=== PATIENT | female | born 1960 | race Caucasian/White ===

== ENCOUNTER 2017-05-17 15:30 | Inpatient (IN) ==
[2017-05-17] MEDS ORDERED: MEPERIDINE 25 MG/1 ML VIAL IV STA (16:10)
[2017-05-17] MEDS ORDERED: SODIUM CHLORIDE 0.9% 1,000 ML IV STA (16:10)
[2017-05-17] MEDS ORDERED: ONDANSETRON 4 MG/2 ML VIAL IV STA (16:10)
--- NOTE | 2017-05-17 16:16 | Emergency Department Note ---
Arrival - Arrival Chief Complaint: Abdominal / Flank Pain Stated Complaint: STOMACH/KIDNEY STONES/MISC ED Nursing Triage Note: PT C/O LEFT LOWER ABD PAIN AND LEFT FLANK PAIN SINCE LAST NIGHT. PT HAD LITHOTRIPSY BY DR BUSTAMANTE IN [place] WHICH SHE STATES HAS NOT PASSED ANYTHING. +N/V DENIES URINARY S/S. Mode of Arrival: Ambulatory Limitations: No Limitations Source: Patient Time Seen by Provider: 05/17/17 15:52 - History of Present Illness HPI Narrative: The patient complains of sharp mid abdominal pain and left flank pain. She has had problems with the left flank pain since she had lithotripsy in [place] by Dr. Bustamante for a kidney stone. She does not think she ever passed the stone. The abdominal pain just started last night. She describes it as sharp and stabbing, worse with movement. She had one episode of vomiting early this morning. The patient also had a fever of 102 4 days ago but none since. She was seen yesterday in clinic and diagnosed with a sinus infection. She was given IM steroids. She has not filled or taken the antibiotics that were prescribed yet. The patient has a history of multiple abdominal surgeries for endometriosis, hysterectomy and small bowel obstruction. She also has a history of GERD her bowel movements have been normal. Last bowel movement was 2 days ago. Allergies/Adverse Reactions: Allergies Allergy/AdvReac Type Severity Reaction Status Date / Time haloperidol [From Haldol] Allergy Agitated Verified 05/17/17 15:37 iodine Allergy HIVES Verified 05/17/17 15:37 promethazine [From Phenergan] AdvReac Nausea Verified 05/17/17 15:37 Home Medications: Home Medications Medication Instructions Recorded Confirmed Type ALPRAZolam [Alprazolam] 1 tablet PO TID PRN 10/08/15 04/17/17 History Levothyroxine Sodium 1 tablet PO DAILY W/BREAKFAST 10/08/15 04/17/17 History Ondansetron HCl 1 tablet PO BID PRN 10/08/15 04/17/17 History Oxycodone HCl/Acetaminophen 10 mg PO Q4HR PRN 10/08/15 04/17/17 History [Oxycodone-Acetaminophen 10-325] Tramadol HCl [Tramadol Tab] 1 tablet PO QID PRN 10/08/15 04/17/17 History fentaNYL 100 MCG/HR PATCH 1 patch TRANSDERM Q3DAY 10/08/15 04/17/17 History [Duragesic 100 Patch] Cyanocobalamin Inj [Vitamin B12 1,000 mcg SUBCUT Q30D 03/30/17 04/17/17 History Inj] Dexlansoprazole [Dexilant] 60 mg PO DAILY 03/30/17 03/30/17 History Zolpidem [Ambien] 5 mg PO BEDTIME PRN 03/30/17 04/17/17 History Review of System - Review of System 12 point system: reviewed and no additional remarkable complaints except as stated - Review of System Constitutional: Present: fever (4 days ago, none since) Head/Ears/Nose/Throat: Absent: nasal drainage, sore throat Respiratory: Present: cough (Mild, nonproductive) Cardiovascular: Absent: chest pain Gastrointestinal: Present: abdominal pain, nausea, vomiting. Absent: diarrhea, constipation, hematemesis Genitourinary female: Absent: dysuria, hematuria Medical,Surgical,& Family Hx - Medical History Neurology: History of: Multiple Sclerosis Rheumatology: History of;: Rheumatoid Arthritis Genitourinary: History of: Kidney Stones Gastrointestinal: History of: Bowel Obstruction, GERD, GI Problems (IBS) Musculoskeletal: History of: Osteoporosis Reproductive: History of: Endometriosis - Surgical History Thoracic Surgeries: Surgical HX of;: Lithotripsy Reproductive Surgeries: Surgical HX of;: Gynecologic Surgery (For endometriosis) , Hysterectomy - Family History Family History: Reports;: Family Diabetes (father) - Social History Smoking Status: Never smoker Frequency of Alcohol Use: None Type of Drug Use: None Exam Physical Examination: GENERAL: Alert. No acute distress. HEENT: Normocephalic and atraumatic. Tympanic membranes are a little dull bilaterally. No fluid or erythema noted. There is no nasal drainage. No pharyngeal erythema or exudate. NECK: Normal inspection. Supple. No lymphadenopathy or meningismus. LUNGS: No respiratory distress. Clear to auscultation bilaterally, no wheezes, rales or rhonchi. HEART: Regular rate and rhythm. ABDOMEN: Soft, nondistended with normal bowel sounds. Mild mid abdominal and left flank tenderness without guarding or rebound. BACK: Normal inspection. SKIN: Color normal. Warm and dry. EXTREMITIES: Nontender. Normal range of motion. No pedal edema. NEUROLOGICAL/PSYCHIATRIC: Alert and oriented -3 with normal mood and affect. Cranial nerves normal. No motor or sensory deficit. Vital Signs: Vital Signs Temperature 97.8 F 05/17/17 15:34 Pulse Rate 74 05/17/17 15:34 Respiratory Rate 18 05/17/17 15:34 Blood Pressure 104/63 05/17/17 15:34 O2 Sat by Pulse Oximetry 98 05/17/17 15:34 Course Course Narrative: I recommended oral contrast for the CT. The patient refused this and understands that the CT may not be as accurate without the contrast and may miss some serious or life-threatening conditions. - Reevaluation(s) Reevaluation #1: Patient has remained stable in the ER. Her exam is relatively benign but she does appear to be uncomfortable. Given her history of bowel obstruction, her dehydration, her history of fever and her slightly elevated white blood cell count, I think she will likely need admission for observation and possible GI and surgery consults. Her CT scan has multiple abnormalities but is fairly nonspecific. I discussed the patient with the hospitalist service who will see her and admit. Time: 17:51 Results - Labs CBC & BMP: 05/17/17 16:15 05/17/17 16:15 Lab Results: I have reviewed the patients labs Labs: Laboratory Tests 05/17/17 05/17/17 05/17/17 16:15 16:15 16:15 Total Bilirubin 0.60 AST 17 ALT 14 Alkaline Phosphatase 74 Amylase 41 Lipase 123.0 Ur Specific [place] 1.047 H Urine Leukocytes Negative Urine RBC 10 Urine WBC 2 - Impressions CT of the abdomen: 1. Segmental wall thickening involving the jejunum is present with increased number of folds and stacked coin appearance of the existing folds. Differential considerations could include hemorrhage as could be seen with anticoagulant therapy, vasculitis, hemophilia, as well as intestinal edema as could be seen from hyperproteinemia secondary to cirrhosis or nephrotic syndrome. Protein-losing enteropathy could additionally be considered. Infectious process is not excluded. Appearance is not typical of inflammatory bowel disease such as Crohn's. 2. Separate areas of subsegmental bowel wall thickening involving the ileum are present with some loss of fold morphology that could reflect inflammatory bowel disease. 3. Colonic diverticulosis is present without evidence of diverticulitis. 4. Ascites is present. Disposition Clinical Impression: Abdominal pain, Dehydration, Enteritis, Multiple sclerosis, Ascites Case discussed with: patient, patient's family Disposition: Still a Patient Condition: Stable Time of Disposition: 17:33
[2017-05-17 16:28] LABS: Basophils % 0.1 % (0.0-0.8); Eosinophils % 0.1 % (0.00-10.9); Hematocrit 37.3 VOL% (35.7-47.0); Immature Granulocytes % 0.3 %; Immature Granulocytes Absolute 0.05 #; Lymphocytes # 2.9 10*3/uL (1.4-4.0); Lymphocytes % 20.4 % (21.3-54.2); Mean Corpuscular HGB Conc 34.9 GM/DL (32-36); Mean Corpuscular Hemoglobin 33 PG (27-34); Mean Corpuscular Volume 94.7 FL (87-102); Monocytes # 0.6 10*3/uL (0.11-0.8); Monocytes % 4.5 % (1.7-12.7); Neutrophils # 10.7 10*3/uL (1.4-7.4); Neutrophils % 74.6 % (38.7-73.9); Platelet Count 263 T/CUMM (130-400); Red Blood Count 3.94 MC/CUMM (3.8-5.5); Red Cell Distribution Width 12.3 % (9.3-17.3); White Blood Count 14.3 T/CUMM (4-12)
[2017-05-17] MEDS ORDERED: ONDANSETRON 4 MG/2 ML VIAL ONE (16:38)
[2017-05-17] MEDS ORDERED: MEPERIDINE 25 MG/1 ML VIAL ONE (16:38)
--- NOTE | 2017-05-17 17:02 | CT Report ---
CT abdomen pelvis w con Indication: Pain in the midabdomen and left flank. Comparison: CT of abdomen and pelvis 10/08/2015. Technique: CT of the abdomen and pelvis was performed following administration of intravenous contrast. The CT examination was performed using one or more of the following dose reduction techniques: Automatic exposure control, adjustment of the mA and kV according to patient size, or iterative reconstruction techniques. Findings: Lower chest: No acute findings are noted within the lower chest. A moderate hiatal hernia is demonstrated. Liver: Liver demonstrates no evidence of mass. The portal vein is patent. There is a small amount of ascites noted along the anterior margin of the right hepatic lobe with some ascites extending into the right paracolic gutter. Gallbladder: Gallbladder demonstrates no significant abnormality. Spleen: Spleen demonstrates no significant abnormality. A small splenic cleft is suggested along the posterior lateral margin. Pancreas: Pancreas demonstrates no significant abnormality. Adrenal glands: The adrenal glands demonstrate no significant abnormalities. Kidneys: Kidneys demonstrate no significant abnormality. Aorta: The aorta demonstrates no acute findings. Inferior vena cava: Inferior vena cava is normal in appearance. Lymph nodes: No adenopathy is noted within the abdomen or pelvis. Stomach and bowel: With the exception of the previously described hiatal hernia, the stomach is unremarkable in appearance. The duodenum demonstrates no significant abnormality. Jejunum demonstrates segmental wall thickening within the left mid abdomen with the bowel wall measuring up to 9.5 mm in thickness. Prominent mucosal folds remain present these appear to be thickened and regular. The number of folds appears to be increased. Folds present within the involved jejunum have a stacked coin appearance. Additionally, there is moderate enhancement of the mucosal surfaces which is considered somewhat nonspecific. Separate areas of bowel wall thickening with less well-defined mucosal folds appear to involve the ileum. Multiple air-fluid levels are noted throughout small bowel. No transition point is present. The mesentery demonstrates small collections of interleaved fluid. Mesenteric stranding additionally is present. The terminal ileum demonstrates no specific abnormality. Cecum is unremarkable. The large bowel demonstrates no evidence of acute pathology. Few scattered diverticula are present in the sigmoid colon. Intrapelvic contents: Small amount of fluid is present within the pelvis. Osseous structures: The imaged osseous structures of the lumbar spine, pelvis, and proximal femurs demonstrate no acute findings. Soft tissues and musculature: Soft tissues and musculature of the body wall demonstrate no acute findings. Impression: 1. Segmental wall thickening involving the jejunum is present with increased number of folds and stacked coin appearance of the existing folds. Differential considerations could include hemorrhage as could be seen with anticoagulant therapy, vasculitis, hemophilia, as well as intestinal edema as could be seen from hyperproteinemia secondary to cirrhosis or nephrotic syndrome. Protein-losing enteropathy could additionally be considered. Infectious process is not excluded. Appearance is not typical of inflammatory bowel disease such as Crohn's. 2. Separate areas of subsegmental bowel wall thickening involving the ileum are present with some loss of fold morphology that could reflect inflammatory bowel disease. 3. Colonic diverticulosis is present without evidence of diverticulitis. 4. Ascites is present. 5. Other findings as detailed. 05/17/2017 4:46 PM PROCEDURE INTERPRETED AT [facility] DEPARTMENT OF RADIOLOGY Final Report Signed by: Dr. Ean Templeton
[2017-05-17 17:04] LABS: Apearance,Urine CLEAR (Clear); Bilirubin,Urine Negative (Negative); Blood, Urine Moderate mg/dL (Negative); Glucose,Urine (UA) Negative (Negative); Ketones,Urine Negative (Negative); Mucus,Urine Few /LPF (Occasional); Nitrite,Urine Negative (Negative); Protein,Urine Negative; RBC,Urine 10 /HPF (0-4); Squamous Epithelial Cell,Urine Occasional /HPF (0-10); Urine Color Yellow (Yellow); Urine Specific Gravity 1.047 (1.001-1.035); Urine Urobilinogen < 2.0 EU/DL (0.2-1.0); WBC,Urine 2 /HPF (0-6)
[2017-05-17 17:06] LABS: Albumin 3.9 G/DL (3.4-5.0); Bilirubin,Total 0.6 MG/DL (0.2-1.0); Calcium 9.2 MG/DL (8.5-10.1); Osmolality,Calculated 276.7 MOS/KG (273-304); Potassium 4.6 MMOL/L (3.5-5.1); Total Protein 7.5 G/DL (6.4-8.3)
[2017-05-17] MEDS ORDERED: MORPHINE 2 MG/1 ML SYRINGE IV PRN (18:53)
[2017-05-17] MEDS ORDERED: ZALEPLON 5 MG CAPSULE PO PRN (18:55)
[2017-05-17] MEDS ORDERED: traMADol 50 MG TABLET PO PRN (18:55)
--- NOTE | 2017-05-17 18:58 | Hospitalist History & Physical ---
Assessment and Plan - Time spent with patient Time spent with patient: Greater than 30 minutes (1) Abdominal pain Status: Acute Assessment and plan: Patient presents with abdominal pain associated with nausea and vomiting. She is now pain-free. CT of the abdomen has been reviewed. Based on these findings will observe her overnight with IV hydration, IV analgesics and antiemetics as needed. 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 Candelario Mendez in the a.m. if required. Current Visit: Yes (2) Scleroderma Status: Chronic Assessment and plan: Stable. Continue current medical regimen. Current Visit: Yes (3) Multiple sclerosis Status: Chronic Assessment and plan: Stable. Current Visit: Yes (4) Hypothyroid Status: Chronic Assessment and plan: Continue current replacement therapy. Current Visit: Yes (5) History of kidney stones Status: Chronic Assessment and plan: Patient had recent kidney stone status post lithotripsy and is been followed by Dr. Shiva Bustamante in the past. At this time do not think pain is related, therefore will treat symptomatically overnight and reevaluate in the a.m. Current Visit: Yes History of Present Illness Chief complaint: Abdominal pain History of present illness: Ms. Stewart is a 56 year old white female who states that she had a kidney stone and underwent lithotripsy approximately 3 weeks ago. She has had continued pain and is followed up with Dr. Shiva Bustamante. Over the weekend she has been noting some intermittent subjective fevers which been waxing and waning and her pain actually got better on Monday. She saw her primary care provider Dr. Chinedu Hyatt yesterday and received I him Decadron shot. She was also sent given some prescriptions which she did not feel. Last night however she had increasing abdominal discomfort with associated nausea and vomiting which lasted throughout the night therefore she came to the emergency room for further evaluation. She denies any melena, hematochezia, hematemesis, dysuria, hematuria, urinary frequency urgency or incontinence. Her last bowel movement was yesterday was within normal limits. Home Medications Medication Instructions Recorded Confirmed Type ALPRAZolam [Alprazolam] 1 tablet PO TID PRN 10/08/15 04/17/17 History Levothyroxine Sodium 1 tablet PO DAILY W/BREAKFAST 10/08/15 04/17/17 History Ondansetron HCl 1 tablet PO BID PRN 10/08/15 04/17/17 History Oxycodone HCl/Acetaminophen 10 mg PO Q4HR PRN 10/08/15 04/17/17 History [Oxycodone-Acetaminophen 10-325] Tramadol HCl [Tramadol Tab] 1 tablet PO QID PRN 10/08/15 04/17/17 History fentaNYL 100 MCG/HR PATCH 1 patch TRANSDERM Q3DAY 10/08/15 04/17/17 History [Duragesic 100 Patch] Cyanocobalamin Inj [Vitamin B12 1,000 mcg SUBCUT Q30D 03/30/17 04/17/17 History Inj] Dexlansoprazole [Dexilant] 60 mg PO DAILY 03/30/17 03/30/17 History Zolpidem [Ambien] 5 mg PO BEDTIME PRN 03/30/17 04/17/17 History Allergies Allergy/AdvReac Type Severity Reaction Status Date / Time haloperidol [From Haldol] Allergy Agitated Verified 05/17/17 15:37 iodine Allergy HIVES Verified 05/17/17 15:37 promethazine [From Phenergan] AdvReac Nausea Verified 05/17/17 15:37 Medical,Surgical,& Family Hx - Medical History Neurology: History of: Multiple Sclerosis Rheumatology: History of;: Fibromyalgia, Rheumatoid Arthritis, Rheumatological Problems (Scleroderma) Genitourinary: History of: Kidney Stones Gastrointestinal: History of: Bowel Obstruction, GERD, GI Problems (IBS) Musculoskeletal: History of: Osteoporosis Reproductive: History of: Endometriosis - Surgical History Thoracic Surgeries: Surgical HX of;: Lithotripsy Abdominal Surgeries: Surgical HX of: Abdominal Surgery (Secondary to small bowel obstruction) Reproductive Surgeries: Surgical HX of;: Gynecologic Surgery (For endometriosis) , Hysterectomy Patient denies;: Genitourinary Surgery - Family History Family History: Reports;: Family Diabetes (father) - Social History Smoking Status: Never smoker Frequency of Alcohol Use: None Type of Drug Use: None 12 point system: reviewed and no additional remarkable complaints except as stated Exam - Constitutional Vitals: Period Temp Pulse Resp BP Sys/Ochoa Pulse Ox Last 24 Hr 97.8 F 74 18 104/63 98 General appearance: no acute distress - Head Head exam: Present: normocephalic, atraumatic - Eye Eye exam: Present: EOMI. Absent: scleral icterus Pupils: Present: FORREST - ENT ENT exam: Present: normal oropharynx - Neck Neck exam: Absent: lymphadenopathy, meningismus, tenderness, thyromegaly - Respiratory Respiratory exam: Present: clear to auscultation bilaterally. Absent: rales, rhonchi, wheezes - Cardiovascular Cardiovascular exam: Present: regular rate and rhythm. Absent: gallop, JVD, systolic murmur, tachycardia - GI/Abdominal GI/Abdominal exam: Present: normal bowel sounds, soft. Absent: mass, organomegaly, tenderness, rebound - Extremities Exam Extremities exam: Absent: calf tenderness, edema - Back Exam Back exam: Present: normal inspection - Neurological Exam Neurological exam: Present: alert, oriented X3, CN II-XII intact, reflexes normal. Absent: motor sensory deficit - Psychiatric Psychiatric exam: Present: normal affect, normal mood. Absent: agitated, anxious - Skin Skin exam: Present: warm, dry. Absent: erythema, petechiae, rash Results - Labs CBC & BMP: 05/17/17 16:15 05/17/17 16:15 Lab Results: I have reviewed the past 24 hour labs - Diagnostic Findings Procedure: CT Abdomen and Pelvis: report reviewed by me
[2017-05-17] MEDS: MEPERIDINE 25 MG/1 ML VIAL IV PRN (22:10)
[2017-05-17] MEDS: ONDANSETRON 4 MG/2 ML VIAL IV PRN (22:12)
[2017-05-17] MEDS: SODIUM CHLORIDE 0.9% 1,000 ML IV SCH (22:13)
[2017-05-18] MEDS: MEPERIDINE 25 MG/1 ML VIAL IV PRN ×4 (03:50→21:57)
[2017-05-18] MEDS: ONDANSETRON 4 MG/2 ML VIAL IV PRN (03:51)
[2017-05-18] MEDS: SODIUM CHLORIDE 0.9% 1,000 ML IV SCH ×3 (05:35→16:09)
[2017-05-18 07:05] LABS: Basophils % 0.4 % (0.0-0.8); Eosinophils # 0.1 10*3/uL (0.0-0.87); Eosinophils % 0.7 % (0.00-10.9); Hematocrit 30.2 VOL% (35.7-47.0); Hemoglobin 10.1 GM/DL (12.0-16.0); Immature Granulocytes % 0.5 %; Immature Granulocytes Absolute 0.04 #; Lymphocytes # 2.5 10*3/uL (1.4-4.0); Lymphocytes % 29.9 % (21.3-54.2); Mean Corpuscular HGB Conc 33.4 GM/DL (32-36); Mean Corpuscular Hemoglobin 32 PG (27-34); Mean Corpuscular Volume 96.2 FL (87-102); Mean Platelet Volume 9.5 FL (9.6-12.0); Monocytes # 0.4 10*3/uL (0.11-0.8); Monocytes % 4.9 % (1.7-12.7); Neutrophils # 5.4 10*3/uL (1.4-7.4); Neutrophils % 63.6 % (38.7-73.9); Platelet Count 222 T/CUMM (130-400); Red Blood Count 3.14 MC/CUMM (3.8-5.5); Red Cell Distribution Width 12.7 % (9.3-17.3); White Blood Count 8.5 T/CUMM (4-12)
[2017-05-18 07:28] LABS: Calcium 7.6 MG/DL (8.5-10.1)
[2017-05-18 07:29] LABS: Osmolality,Calculated 279.3 MOS/KG (273-304); Potassium 3.8 MMOL/L (3.5-5.1)
[2017-05-18] MEDS: fentaNYL 100 MCG/HR PATCH TRANSDERM SCH (08:47)
[2017-05-18] MEDS: PANTOPRAZOLE 40 MG TABLET PO SCH (08:48)
[2017-05-18] MEDS: LEVOTHYROXINE 100 MCG TABLET PO SCH (08:48)
[2017-05-18] MEDS ORDERED: CYANOCOBALAMIN 1000 MCG/1 ML VIAL SUBCUT SCH (09:00)
--- NOTE | 2017-05-18 09:19 | Hospitalist Progress Note ---
Assessment and Plan (1) Abdominal pain Status: Acute Assessment and plan: She states vomiting has stopped and pain has improved. CT report noted. Plan awaiting GI's input. continue IV hydration, IV analgesics and antiemetics as needed Will start antibiotics if patient spikes a temp BC Current Visit: Yes (2) Scleroderma Status: Chronic Assessment and plan: Stable. Continue current medical regimen. Current Visit: Yes (3) Multiple sclerosis Status: Chronic Assessment and plan: Stable. Current Visit: Yes (4) Hypothyroid Status: Chronic Assessment and plan: will get a TSH level, continue current replacement therapy. Current Visit: Yes (5) History of kidney stones Status: Chronic Assessment and plan: Patient had recent kidney stone status post lithotripsy and is been followed by Dr. Shiva Bustamante in the past. At this time do not think pain is related, therefore will treat symptomatically Current Visit: Yes Hospitalist: Subjective Interval history: 56yr old with multiple medical issues who was admitted for an abdominal pain. This am, she states vomiting has stopped and pain has improved.We are still waiting for a GI evaluation. Exam - Constitutional Vitals: Period Temp Pulse Resp BP Sys/Ochoa Pulse Ox Last 24 Hr 97.3 F-98.0 F 65-74 18-20 90-110/51-68 94-98 General appearance: no acute distress - Head Head exam: Present: normal inspection - ENT ENT exam: Present: normal exam - Respiratory Respiratory exam: Present: clear to auscultation bilaterally - Cardiovascular Cardiovascular exam: Present: regular rate and rhythm - GI/Abdominal GI/Abdominal exam: Present: normal bowel sounds - Extremities Exam Extremities exam: Present: normal inspection - Neurological Exam Neurological exam: Present: alert, oriented X3 Results - Labs CBC & BMP: 05/18/17 05:30 05/18/17 05:30 Lab Results: I have reviewed the past 24 hour labs
[2017-05-18 09:52] LABS: Free T4 (Free Thyroxine) 0.68 NG/DL (0.76-1.46); Thyroid Stimulating Hormone 94.9 uIU/ml (0.358-3.74)
--- NOTE | 2017-05-18 11:19 | Gastrointestinal Consult Note ---
Assessment and Plan (1) Abdominal pain Status: Acute Assessment and plan: 05/18-several day history of lower abdominal and umbilical pain with associated nausea and vomiting as well as fever and chills. History of small bowel obstruction in the past. Leukocytosis noted on admission. CT findings noted as below. Currently no IV antibiotics. Obtain records from endoscopic center for prior endoscopy. Plan an addendum followed by Dr. Mendez. Current Visit: Yes History of Present Illness Chief complaint: Abdominal pain History of present illness: Ms. Stewart is a 56 year old female who was admitted to the hospital on yesterday with onset of abdominal pain, nausea vomiting. Patient states that approximately 3 weeks ago she was found to have kidney stones and underwent lithotripsy. She states that she has had some lower back pain associated with this however on Monday she states the pain began in her abdomen around her umbilical area. She states the pain was severe in nature and described to be sharp and stabbing. The pain began fairly sudden and was associated with episodes of intractable nausea and vomiting. She also states that she has had some associated fever and chills with a temperature up to 100.2. Patient states that she then came to the hospital for further evaluation due to worsening of her symptoms. She denies any changes in her bowel habits or hematochezia associated with this. She denies any coffee-ground or hematemesis with the vomiting episodes. Patient has a prior history of scleroderma, multiple sclerosis, and hypothyroidism. She states that she has had gastrointestinal issues for several years with her most recent being in 2014 in which she had a small bowel obstruction which fortunately resolved without surgical intervention. Patient also has a history of multiple abdominal surgeries for endometriosis as well as hysterectomy. She also has a history of irritable bowel syndrome. She has had multiple upper scopes done however the last EGD was in 2012 which was normal findings. Her last colonoscopy was noted to be done in 2002 far recurrent diarrhea and abdominal pain with normal findings to the level of the hepatic flexure however poor bowel prep was noted at that time. On admission patient was found to have leukocytosis with WBCs of 14,000. She has been afebrile since admission. She was also noted to have a CT of abdomen with contrast which shows segmental wall thickening of the jejunum with increased folds and stacked coin appearance, separate areas of subsegmental bowel wall thickening of the ileum, diverticulosis and ascites. Home Medications Medication Instructions Recorded Confirmed Type ALPRAZolam [Alprazolam] 2 mg PO TID PRN 10/08/15 05/18/17 History Oxycodone HCl/Acetaminophen 10 mg PO Q4H PRN 10/08/15 05/18/17 History [Oxycodone-Acetaminophen 10-325] Tramadol HCl [Tramadol Tab] 50 mg PO QID PRN 10/08/15 05/18/17 History fentaNYL 100 MCG/HR PATCH 1 patch TRANSDERM Q3D 10/08/15 05/18/17 History [Duragesic 100 Patch] Cyanocobalamin Inj [Vitamin B12 1,000 mcg SUBCUT Q30D 03/30/17 05/18/17 History Inj] Dexlansoprazole [Dexilant] 60 mg PO DAILY 03/30/17 05/18/17 History Zolpidem [Ambien] 5 mg PO BEDTIME PRN 03/30/17 05/18/17 History Levothyroxine Tab [Synthroid Tab] 125 mcg PO DAILY@0700 05/17/17 05/18/17 History Ondansetron [Ondansetron Odt] 4 mg PO BID PRN 05/17/17 05/18/17 History Allergies Allergy/AdvReac Type Severity Reaction Status Date / Time haloperidol [From Haldol] Allergy Agitated Verified 05/17/17 15:37 iodine Allergy HIVES Verified 05/17/17 15:37 promethazine [From Phenergan] AdvReac Nausea Verified 05/17/17 15:37 Medical,Surgical,& Family Hx - Medical History Neurology: History of: Multiple Sclerosis No history of: Brain Aneurysm, Cerebral Hemorrhage, Cerebrovascular Accident , Cerebral Palsy, Dementia, Migraine, Parkinson's Disease, Peripheral Neuropathy , Seizures, TIA, Vertigo, Neurologocal Cancer HEENT: History of: Eye Problem (partial loss of vision Left eye) No history of: Ear Problem, Dental Problems, Glaucoma, Oral Cancer, HEENT Problems Rheumatology: History of;: Fibromyalgia, Rheumatoid Arthritis, Rheumatological Problems (Scleroderma) No history of;: Gout, Myasthenia Gravis Renal: No history of: Renal (Kidney) Cancer, Dialysis, Renal Failure, Renal Problems Genitourinary: History of: Kidney Stones No history of: Bladder Problem, Recurring Urinary Tract Infections, Genitourinary Cancer, Problems Gastrointestinal: History of: Bowel Obstruction, GERD, GI Problems (IBS) No history of: Clostridium Difficile, Crohn's Disease, Diverticulitis/ Diverticulosis, Esophageal Varices, Gastrointestinal Bleed, Hemorrhoids, Hematochezia, Hepatitis, Liver Problems, Pancreatitis, Polyps, Ulcerative Colitis, Gastrointestinal Cancer Musculoskeletal: History of: Herniated Disk, Osteoporosis, Musculoskeletal Problems No history of: Amputation, Back/Neck Problems, Degenerative Disk Disease, Musculoskeletal Cancer Reproductive: History of: Endometriosis No history of: Abnormal Pap Smear, Breast Cancer, Ectopic , Ovarian Cysts, Complication, Sexually Transmitted Disorders, Reproductive Cancer, Reproductive Problems - Surgical History Cardiac Surgeries: Patient Denies: Femoral-Popliteal Bypass Graft, Cardiac Catheterization, Cardiac Surgery, Carotid Endarterectomy, Internal Defibrillator, Vascular Access Devices Thoracic Surgeries: Surgical HX of;: Lithotripsy Patient denies;: Nephrectomy, Organ Transplant, Lobectomy Neurologic Surgeries: Patient denies: Brain Aneurysm, Cerebral Hemorrhage, Neurologic Surgery HEENT Surgeries: Surgical HX of: Tonsilectomy & Adenoidectomy Patient denies: Carotid Endarterectomy Abdominal Surgeries: Surgical HX of: Abdominal Surgery (Secondary to small bowel obstruction), Appendectomy, Colonoscopy, EGD Patient denies: Cholecystectomy, Gastric Bypass Surgery, Hernia Repair, Splenectomy Reproductive Surgeries: Surgical HX of;: Gynecologic Surgery (For endometriosis) , Hysterectomy Patient denies;: Breast Surgery, Section, Cystoscopy, Dilation and Curettage, Genitourinary Surgery, Tubal Ligation Orthopedic Surgeries: Surgical HX of;: Orthopedic Surgery (Right knee partial) Patient denies;: Implanted Devices, Total Knee Replacement - Family History Family History: Reports;: Family Diabetes (father) - Social History Smoking Status: Never smoker Frequency of Alcohol Use: None Type of Drug Use: None 12 point system: reviewed and no additional remarkable complaints except as stated - Constitutional Constitutional: Present: as per HPI, chills, fatigue, fever(s) - EENT Eyes: Present: as per HPI Ears: Present: as per HPI Nose, mouth and throat: Present: as per HPI - Cardiovascular Cardiovascular: Present: as per HPI - Respiratory Respiratory: Present: as per HPI - Gastrointestinal Gastrointestinal: Present: as per HPI, abdominal pain, nausea, vomiting - Genitourinary Genitourinary: Present: as per HPI - Musculoskeletal Musculoskeletal: Present: as per HPI - Neurological Neurological: Present: as per HPI - Psychiatric Psychiatric: Present: as per HPI - Endocrine Endocrine: Present: as per HPI - Hematologic/Lymphatic Hematologic/Lymphatic: Present: as per HPI Exam - Constitutional Vitals: Period Temp Pulse Resp BP Sys/Ochoa Pulse Ox Last 24 Hr 97.3 F-98.0 F 65-74 18-20 90-110/51-68 94-98 General appearance: normal weight, no acute distress - Head Head exam: Present: normal inspection, normocephalic - Eye Eye exam: Present: other (Lids and conjunctivae are unremarkable). Absent: scleral icterus - ENT ENT exam: Present: normal exam, normal oropharynx - Neck Neck exam: Present: normal inspection - Respiratory Respiratory exam: Present: clear to auscultation bilaterally. Absent: rales, rhonchi, wheezes - Cardiovascular Cardiovascular exam: Present: regular rate and rhythm. Absent: diastolic murmur , JVD, systolic murmur - GI/Abdominal GI/Abdominal exam: Present: normal bowel sounds, soft. Absent: ascites, distended, mass, organomegaly, tenderness - Extremities Exam Extremities exam: Present: normal inspection, full ROM - Back Exam Back exam: Present: normal inspection - Neurological Exam Neurological exam: Present: alert, oriented X3 - Psychiatric Psychiatric exam: Present: normal affect, normal mood - Skin Skin exam: Present: normal color, warm, dry Results - Labs CBC & BMP: 05/18/17 05:30 05/18/17 05:30 Lab Results: I have reviewed the past 24 hour labs - Diagnostic Findings Procedure: CT Abdomen and Pelvis: report reviewed by me
[2017-05-18] MEDS ORDERED: cefTRIAXone 1,000 MG VIAL IM SCH (18:00)
--- NOTE | 2017-05-18 18:04 | Pain Management Consult Note ---
Assessment and Plan (1) Abdominal pain Status: Acute Assessment and plan: i will increase the frequency of demerol as requested by patient and review again in morning Current Visit: Yes History of Present Illness Chief complaint: abdominal pain History of present illness: Ms. Stewart is a 56 year old female patient well known to me due to history of chronic low back pain and recurrent urinary tract infections. patient is now admitted with suspected diverticulitis and requesting increase in demerol dose Home Medications Medication Instructions Recorded Confirmed Type ALPRAZolam [Alprazolam] 2 mg PO TID PRN 10/08/15 05/18/17 History Oxycodone HCl/Acetaminophen 10 mg PO Q4H PRN 10/08/15 05/18/17 History [Oxycodone-Acetaminophen 10-325] Tramadol HCl [Tramadol Tab] 50 mg PO QID PRN 10/08/15 05/18/17 History fentaNYL 100 MCG/HR PATCH 1 patch TRANSDERM Q3D 10/08/15 05/18/17 History [Duragesic 100 Patch] Cyanocobalamin Inj [Vitamin B12 1,000 mcg SUBCUT Q30D 03/30/17 05/18/17 History Inj] Dexlansoprazole [Dexilant] 60 mg PO DAILY 03/30/17 05/18/17 History Zolpidem [Ambien] 5 mg PO BEDTIME PRN 03/30/17 05/18/17 History Levothyroxine Tab [Synthroid Tab] 125 mcg PO DAILY@0700 05/17/17 05/18/17 History Ondansetron [Ondansetron Odt] 4 mg PO BID PRN 05/17/17 05/18/17 History Allergies Allergy/AdvReac Type Severity Reaction Status Date / Time haloperidol [From Haldol] Allergy Agitated Verified 05/17/17 15:37 iodine Allergy HIVES Verified 05/17/17 15:37 promethazine [From Phenergan] AdvReac Nausea Verified 05/17/17 15:37 Medical,Surgical,& Family Hx - Medical History Neurology: History of: Multiple Sclerosis No history of: Brain Aneurysm, Cerebral Hemorrhage, Cerebrovascular Accident , Cerebral Palsy, Dementia, Migraine, Parkinson's Disease, Peripheral Neuropathy , Seizures, TIA, Vertigo, Neurologocal Cancer HEENT: History of: Eye Problem (partial loss of vision Left eye) No history of: Ear Problem, Dental Problems, Glaucoma, Oral Cancer, HEENT Problems Rheumatology: History of;: Fibromyalgia, Rheumatoid Arthritis, Rheumatological Problems (Scleroderma) No history of;: Gout, Myasthenia Gravis Renal: No history of: Renal (Kidney) Cancer, Dialysis, Renal Failure, Renal Problems Genitourinary: History of: Kidney Stones No history of: Bladder Problem, Recurring Urinary Tract Infections, Genitourinary Cancer, Problems Gastrointestinal: History of: Bowel Obstruction, GERD, GI Problems (IBS) No history of: Clostridium Difficile, Crohn's Disease, Diverticulitis/ Diverticulosis, Esophageal Varices, Gastrointestinal Bleed, Hemorrhoids, Hematochezia, Hepatitis, Liver Problems, Pancreatitis, Polyps, Ulcerative Colitis, Gastrointestinal Cancer Musculoskeletal: History of: Herniated Disk, Osteoporosis, Musculoskeletal Problems No history of: Amputation, Back/Neck Problems, Degenerative Disk Disease, Musculoskeletal Cancer Reproductive: History of: Endometriosis No history of: Abnormal Pap Smear, Breast Cancer, Ectopic , Ovarian Cysts, Complication, Sexually Transmitted Disorders, Reproductive Cancer, Reproductive Problems - Surgical History Cardiac Surgeries: Patient Denies: Femoral-Popliteal Bypass Graft, Cardiac Catheterization, Cardiac Surgery, Carotid Endarterectomy, Internal Defibrillator, Vascular Access Devices Thoracic Surgeries: Surgical HX of;: Lithotripsy Patient denies;: Nephrectomy, Organ Transplant, Lobectomy Neurologic Surgeries: Patient denies: Brain Aneurysm, Cerebral Hemorrhage, Neurologic Surgery HEENT Surgeries: Surgical HX of: Tonsilectomy & Adenoidectomy Patient denies: Carotid Endarterectomy Abdominal Surgeries: Surgical HX of: Abdominal Surgery (Secondary to small bowel obstruction), Appendectomy, Colonoscopy, EGD Patient denies: Cholecystectomy, Gastric Bypass Surgery, Hernia Repair, Splenectomy Reproductive Surgeries: Surgical HX of;: Gynecologic Surgery (For endometriosis) , Hysterectomy Patient denies;: Breast Surgery, Section, Cystoscopy, Dilation and Curettage, Genitourinary Surgery, Tubal Ligation Orthopedic Surgeries: Surgical HX of;: Orthopedic Surgery (Right knee partial) Patient denies;: Implanted Devices, Total Knee Replacement - Family History Family History: Reports;: Family Diabetes (father) - Social History Smoking Status: Never smoker Frequency of Alcohol Use: None Type of Drug Use: None 12 point system: reviewed and no additional remarkable complaints except as stated Exam - Constitutional Vitals: Period Temp Pulse Resp BP Sys/Ochoa Pulse Ox Last 24 Hr 97.3 F-98.0 F 60-71 18-20 90-111/51-68 94-98 General appearance: mild distress - Head Head exam: Present: normal inspection - Eye Eye exam: Present: EOMI Pupils: Present: FORREST - ENT ENT exam: Present: normal exam Ear exam: Present: intact Mouth exam: Present: normal external inspection - Neck Neck exam: Present: normal inspection - Respiratory Respiratory exam: Present: clear to auscultation bilaterally - Cardiovascular Cardiovascular exam: Present: RRR - GI/Abdominal GI/Abdominal exam: Present: tenderness - Extremities Exam Extremities exam: Present: normal inspection - Back Exam Back exam: Present: vertebral tenderness - Neurological Exam Neurological exam: Present: alert, oriented X3 - Skin Skin exam: Present: normal color Results - Labs CBC & BMP: 05/18/17 05:30 05/18/17 05:30 Lab Results: I have reviewed the past 24 hour labs
[2017-05-18] MEDS: cefTRIAXone 1,000 MG in SODIUM CHLORIDE 0.9% 100 ML IV SCH (18:36)
[2017-05-18] MEDS: metroNIDAZOLE INJ 500 MG in PREMIX 1 EACH IV SCH (19:38)
[2017-05-19] MEDS: SODIUM CHLORIDE 0.9% 1,000 ML IV SCH ×3 (00:37→17:45)
[2017-05-19] MEDS: metroNIDAZOLE INJ 500 MG in PREMIX 1 EACH IV SCH ×3 (02:38→17:43)
[2017-05-19] MEDS: MEPERIDINE 25 MG/1 ML VIAL IV PRN ×5 (02:40→23:58)
--- NOTE | 2017-05-19 06:28 | Pain Management Progress Note ---
Assessment and Plan (1) Abdominal pain Status: Acute Assessment and plan: i will increase the frequency of demerol as requested by patient and review again in morning 05/19 we can continue current home pain medications and Demerol can be given as needed for breakthrough pain Current Visit: Yes Pain - Subjective Interval history: Patient continues to complain of back pain on the left flank and lower abdominal pain left side more than right. Changing the Demerol to every 4 hours has helped somewhat. I inquired with the patient about her bowel movements and she reports she is not having had has had a bowel movement since Monday. I have informed her that these opioids are contributing to the constipation and may need to be adjusted by GI recommendations Exam - Constitutional Vitals: Period Temp Pulse Resp BP Sys/Ochoa Pulse Ox Last 24 Hr 97.0 F-98.9 F 55-65 17-20 84-111/45-59 93-98 General appearance: no acute distress - Head Head exam: Present: normal inspection - Eye Eye exam: Present: EOMI Pupils: Present: FORREST - ENT ENT exam: Present: normal exam Ear exam: Present: intact Mouth exam: Present: normal external inspection - Neck Neck exam: Present: normal inspection - Respiratory Respiratory exam: Present: clear to auscultation bilaterally - Cardiovascular Cardiovascular exam: Present: RRR - GI/Abdominal GI/Abdominal exam: Present: tenderness - Extremities Exam Extremities exam: Present: normal inspection - Back Exam Back exam: Present: CVA tenderness (L), vertebral tenderness - Neurological Exam Neurological exam: Present: abnormal gait - Skin Skin exam: Present: normal color Results - Labs CBC & BMP: 05/18/17 05:30 05/18/17 05:30 Lab Results: I have reviewed the past 24 hour labs
[2017-05-19] MEDS: PANTOPRAZOLE 40 MG TABLET PO SCH (09:39)
[2017-05-19] MEDS: LEVOTHYROXINE 100 MCG TABLET PO SCH (09:39)
--- NOTE | 2017-05-19 09:57 | Gastrointestinal Progress Note ---
Assessment and Plan (1) Abdominal pain Status: Acute Assessment and plan: 05/19-abdominal pain continues. No nausea or vomiting. Afebrile. No leukocytosis. Diagnostic paracentesis today. Await results of this. Plan an addendum to follow Dr. Mendez 05/18-several day history of lower abdominal and umbilical pain with associated nausea and vomiting as well as fever and chills. History of small bowel obstruction in the past. Leukocytosis noted on admission. CT findings noted as below. Currently no IV antibiotics. Obtain records from endoscopic center for prior endoscopy. Plan an addendum followed by Dr. Mendez. Current Visit: Yes Gastroenterology - PN: Subj Interval history: CC: Abdominal pain Patient is seen awake and alert lying in bed. States that she is feeling about the same at this time. Patient is concerned because she has her original pain however feels like she is having what she feels like is pain related to her appendix. She is noted to be scheduled today for a diagnostic paracentesis due to the findings of ascites on her CT scan. She is afebrile without leukocytosis. Abdomen is soft, tender to palpation. No reports of overt bleeding. Continue IV antibiotics and await results of paracentesis. ROS: Denies shortness of breath or chest pain Exam (Progress Note) - Constitutional Vitals: Period Temp Pulse Resp BP Sys/Ochoa Pulse Ox Last 24 Hr 97.0 F-98.9 F 55-64 17-20 84-111/45-59 93-98 - Other Additional findings: General appearance: normal weight, no acute distress - Head Head exam: Present: normal inspection, normocephalic - Eye Eye exam: Present: other (Lids and conjunctivae are unremarkable). Absent: scleral icterus - ENT ENT exam: Present: normal exam, normal oropharynx - Neck Neck exam: Present: normal inspection - Respiratory Respiratory exam: Present: clear to auscultation bilaterally. Absent: rales, rhonchi, wheezes - Cardiovascular Cardiovascular exam: Present: regular rate and rhythm. Absent: diastolic murmur , JVD, systolic murmur - GI/Abdominal GI/Abdominal exam: Present: normal bowel sounds, soft. Absent: ascites, distended, mass, organomegaly, tenderness - Extremities Exam Extremities exam: Present: normal inspection, full ROM - Back Exam Back exam: Present: normal inspection - Neurological Exam Neurological exam: Present: alert, oriented X3 - Psychiatric Psychiatric exam: Present: normal affect, normal mood - Skin Skin exam: Present: normal color, warm, dry Results - Labs CBC & BMP: 05/18/17 05:30 05/18/17 05:30 Lab Results: I have reviewed the past 24 hour labs
--- NOTE | 2017-05-19 10:15 | Hospitalist Progress Note ---
Assessment and Plan - Time spent with patient Time spent with patient: Greater than 30 minutes (Pt is new to me today and chart reviewed by me today.) (1) Abdominal pain Status: Acute Assessment and plan: Due to enteritis, also suspect possible SBP. On IV rocephin and flagyl. IR consulted for diagnostic paracentesis today. GI f/u. Current Visit: Yes (2) Enteritis Status: Acute Assessment and plan: Continue IV rocephin and flagyl Current Visit: Yes (3) Ascites Status: Acute Assessment and plan: Suspect SBP, will do paracentesis today. Current Visit: Yes (4) Multiple sclerosis Status: Chronic Current Visit: Yes (5) Chronic low back pain Status: Acute Assessment and plan: Continue pain management. Current Visit: No (6) Anemia Status: Acute Assessment and plan: Monitor H/H, transfuse as needed. Current Visit: No (7) Scleroderma Status: Chronic Current Visit: Yes (8) Hypothyroid Status: Chronic Assessment and plan: Continue synthroid Current Visit: Yes (9) History of kidney stones Status: Chronic Current Visit: Yes Hospitalist: Subjective Interval history: Still has persistent abd pain at lower abd area. No fever, N/V/D, or dysuria reported. On IV rocephin and flagyl. GI f/u. IR consulted for diagnostic paracentesis today. Exam - Constitutional Vitals: Period Temp Pulse Resp BP Sys/Ochoa Pulse Ox Last 24 Hr 97.0 F-98.9 F 55-64 17-20 84-111/45-59 93-98 Exam: General: Lying in bed supine. AAOx3 HEENT: NC AT EOMI, normal lips and gum Lungs: B/L CTA Heart: RRR, no gallops. Abd: +BS, ND, tenderness at lower abd area. Neuro: AAOx3 Results - Labs CBC & BMP: 05/18/17 05:30 05/18/17 05:30
--- NOTE | 2017-05-19 15:57 | Ultrasound Report ---
US abdomen limited Clinical Information: ^ASCITES Comparison: Prior CT abdomen pelvis 05/17/2017 Findings: Targeted ultrasound evaluation of the 4 quadrants of the abdomen does not demonstrate significant free fluid. When placed in the right decubitus position, ultrasound evaluation of the right lower quadrant/pelvis demonstrates trace free fluid about a small bowel loop. This is a centimeter or less in overall thickness and appears to be significantly decreased in volume as compared to prior CT. This is too small volume for safe needle access. Impression: Minimal free fluid within the abdomen/pelvis as detailed above. Overall volume of ascites appears decreased from the prior CT study. PROCEDURE INTERPRETED AT [facility] DEPARTMENT OF RADIOLOGY Final Report Signed by: Kristopher Lindquist
[2017-05-19] MEDS: cefTRIAXone 1,000 MG in SODIUM CHLORIDE 0.9% 100 ML IV SCH (18:42)
[2017-05-19] MEDS: ONDANSETRON 4 MG/2 ML VIAL IV PRN ×2 (18:47→23:55)
[2017-05-20] MEDS: metroNIDAZOLE INJ 500 MG in PREMIX 1 EACH IV SCH ×3 (01:49→17:36)
[2017-05-20 03:31] LABS: Basophils % 0.4 % (0.0-0.8); Eosinophils % 0.7 % (0.00-10.9); Hematocrit 27.9 VOL% (35.7-47.0); Hemoglobin 9.5 GM/DL (12.0-16.0); Immature Granulocytes % 0.4 %; Immature Granulocytes Absolute 0.02 #; Lymphocytes # 2.5 10*3/uL (1.4-4.0); Lymphocytes % 43.2 % (21.3-54.2); Mean Corpuscular HGB Conc 34.1 GM/DL (32-36); Mean Corpuscular Hemoglobin 32 PG (27-34); Mean Corpuscular Volume 95.2 FL (87-102); Mean Platelet Volume 9.6 FL (9.6-12.0); Monocytes # 0.3 10*3/uL (0.11-0.8); Monocytes % 5.4 % (1.7-12.7); Neutrophils # 2.8 10*3/uL (1.4-7.4); Neutrophils % 49.9 % (38.7-73.9); Platelet Count 187 T/CUMM (130-400); Red Blood Count 2.93 MC/CUMM (3.8-5.5); Red Cell Distribution Width 12.1 % (9.3-17.3); White Blood Count 5.7 T/CUMM (4-12)
[2017-05-20 03:49] LABS: Albumin 3.1 G/DL (3.4-5.0); Bilirubin,Total 0.5 MG/DL (0.2-1.0); Calcium 7.8 MG/DL (8.5-10.1); Osmolality,Calculated 278.1 MOS/KG (273-304); Potassium 3.6 MMOL/L (3.5-5.1); Total Protein 5.6 G/DL (6.4-8.3)
[2017-05-20] MEDS: ONDANSETRON 4 MG/2 ML VIAL IV PRN ×4 (05:13→22:27)
[2017-05-20] MEDS: MEPERIDINE 25 MG/1 ML VIAL IV PRN ×4 (05:15→22:30)
[2017-05-20] MEDS: SODIUM CHLORIDE 0.9% 1,000 ML IV SCH ×3 (05:20→23:21)
[2017-05-20] MEDS: PANTOPRAZOLE 40 MG TABLET PO SCH (09:30)
[2017-05-20] MEDS: LEVOTHYROXINE 100 MCG TABLET PO SCH (09:30)
[2017-05-20 10:40] LABS: Thyroid Stimulating Hormone 72.7 uIU/ml (0.358-3.74)
--- NOTE | 2017-05-20 13:55 | General Surgery Consult Note ---
Assessment and Plan (1) Abdominal pain Status: Acute Assessment and plan: The patient does not appear to be in any distress. She is doing somewhat better from the standpoint of tolerating liquids but her pain really has not responded completely to the current treatment. I have recommended a repeat CT scan on Monday which will actually be a CT mesenteric angiogram and we will get thinner slices through these vessels to make sure that there is no pathology causing her abdominal pain and bowel wall thickening with ascites. If she worsens before then we will certainly readdress any emergent issues that , but if she looks stable right now to undergo a course of treatment with antibiotics and plan for CT scan Monday. It sounds like she has a very complex history for which she was referred to a specialty center at [place] and had multiple tests done there. She states that these records are available in the [facility] system and we will certainly try to get collateral information from [place] and from outside facilities help establish a diagnosis here. Laparoscopy is an option but with her extensive abdominal surgical history there is a good chance she would require laparotomy to fully investigate her intestines and I think this should be reserved as a last resort. Current Visit: Yes History of Present Illness Chief complaint: Abdominal pain with nausea and vomiting History of present illness: Ms. Stewart is a 56 year old female with a history of multiple sclerosis and possible scleroderma who is admitted to the hospital with acute on chronic abdominal pain with nausea and vomiting that acutely worsened last Monday and got to the point last Monday where she could not bear it any further. She presented to the ER where she was found to have an elevated white blood cell count and a CT scan of the abdomen and pelvis which revealed thickening of the small bowel. There is also free fluid in the pelvis. She was admitted to the hospital for further evaluation and treatment. In obtaining more history from the patient she has had a complex abdominal history for which she was actually referred to the [facility] at one point in time and was not given a discrete answer for her problems. Some of the details of these hospitalizations a specialty referral centers for unclear but the patient does state that she thinks she was sent home on steroids at one point in time and possibly given a diagnosis of scleroderma that did involve the intestines. She has had intermittent problems over the past 30 years basically and also had a surgery once at [place] in the 80s were segment of small intestine was removed. She does not recall the diagnosis that was given to her at this admission. She feels a little bit better after being admitted and placed on antibiotics but she still having quite a bit of abdominal pain especially with movement. She is tolerating some clear liquids and her nausea and vomiting is better but she has not passed gas or had a bowel movement since Monday. She denies any diarrhea or blood in her stool. Home Medications Medication Instructions Recorded Confirmed Type ALPRAZolam [Alprazolam] 2 mg PO TID PRN 10/08/15 05/18/17 History Oxycodone HCl/Acetaminophen 10 mg PO Q4H PRN 10/08/15 05/18/17 History [Oxycodone-Acetaminophen 10-325] Tramadol HCl [Tramadol Tab] 50 mg PO QID PRN 10/08/15 05/18/17 History fentaNYL 100 MCG/HR PATCH 1 patch TRANSDERM Q3D 10/08/15 05/18/17 History [Duragesic 100 Patch] Cyanocobalamin Inj [Vitamin B12 1,000 mcg SUBCUT Q30D 03/30/17 05/18/17 History Inj] Dexlansoprazole [Dexilant] 60 mg PO DAILY 03/30/17 05/18/17 History Zolpidem [Ambien] 5 mg PO BEDTIME PRN 03/30/17 05/18/17 History Levothyroxine Tab [Synthroid Tab] 125 mcg PO DAILY@0700 05/17/17 05/18/17 History Ondansetron [Ondansetron Odt] 4 mg PO BID PRN 05/17/17 05/18/17 History Allergies Allergy/AdvReac Type Severity Reaction Status Date / Time haloperidol [From Haldol] Allergy Agitated Verified 05/17/17 15:37 iodine Allergy HIVES Verified 05/17/17 15:37 promethazine [From Phenergan] AdvReac Nausea Verified 05/17/17 15:37 Medical,Surgical,& Family Hx - Medical History Neurology: History of: Multiple Sclerosis No history of: Brain Aneurysm, Cerebral Hemorrhage, Cerebrovascular Accident , Cerebral Palsy, Dementia, Migraine, Parkinson's Disease, Peripheral Neuropathy , Seizures, TIA, Vertigo, Neurologocal Cancer HEENT: History of: Eye Problem (partial loss of vision Left eye) No history of: Ear Problem, Dental Problems, Glaucoma, Oral Cancer, HEENT Problems Rheumatology: History of;: Fibromyalgia, Rheumatoid Arthritis, Rheumatological Problems (Scleroderma) No history of;: Gout, Myasthenia Gravis Renal: No history of: Renal (Kidney) Cancer, Dialysis, Renal Failure, Renal Problems Genitourinary: History of: Kidney Stones No history of: Bladder Problem, Recurring Urinary Tract Infections, Genitourinary Cancer, Problems Gastrointestinal: History of: Bowel Obstruction, GERD, GI Problems (IBS) No history of: Clostridium Difficile, Crohn's Disease, Diverticulitis/ Diverticulosis, Esophageal Varices, Gastrointestinal Bleed, Hemorrhoids, Hematochezia, Hepatitis, Liver Problems, Pancreatitis, Polyps, Ulcerative Colitis, Gastrointestinal Cancer Musculoskeletal: History of: Herniated Disk, Osteoporosis, Musculoskeletal Problems No history of: Amputation, Back/Neck Problems, Degenerative Disk Disease, Musculoskeletal Cancer Reproductive: History of: Endometriosis No history of: Abnormal Pap Smear, Breast Cancer, Ectopic , Ovarian Cysts, Complication, Sexually Transmitted Disorders, Reproductive Cancer, Reproductive Problems - Surgical History Cardiac Surgeries: Patient Denies: Femoral-Popliteal Bypass Graft, Cardiac Catheterization, Cardiac Surgery, Carotid Endarterectomy, Internal Defibrillator, Vascular Access Devices Thoracic Surgeries: Surgical HX of;: Lithotripsy Patient denies;: Nephrectomy, Organ Transplant, Lobectomy Neurologic Surgeries: Patient denies: Brain Aneurysm, Cerebral Hemorrhage, Neurologic Surgery HEENT Surgeries: Surgical HX of: Tonsilectomy & Adenoidectomy Patient denies: Carotid Endarterectomy Abdominal Surgeries: Surgical HX of: Abdominal Surgery (Secondary to small bowel obstruction), Appendectomy, Colonoscopy, EGD Patient denies: Cholecystectomy, Gastric Bypass Surgery, Hernia Repair, Splenectomy Reproductive Surgeries: Surgical HX of;: Gynecologic Surgery (For endometriosis) , Hysterectomy Patient denies;: Breast Surgery, Section, Cystoscopy, Dilation and Curettage, Genitourinary Surgery, Tubal Ligation Orthopedic Surgeries: Surgical HX of;: Orthopedic Surgery (Right knee partial) Patient denies;: Implanted Devices, Total Knee Replacement - Family History Family History: Reports;: Family Diabetes (father) - Social History Smoking Status: Never smoker Frequency of Alcohol Use: None Type of Drug Use: None - Constitutional Constitutional: Present: as per HPI - EENT Nose, mouth and throat: Present: as per HPI - Cardiovascular Cardiovascular: Present: as per HPI - Respiratory Respiratory: Present: as per HPI - Gastrointestinal Gastrointestinal: Present: as per HPI - Genitourinary Genitourinary: Present: as per HPI - Musculoskeletal Musculoskeletal: Present: as per HPI - Neurological Neurological: Present: as per HPI - Endocrine Endocrine: Present: as per HPI Hematologic/Lymphatic: Present: as per HPI Exam - Constitutional Vitals: Period Temp Pulse Resp BP Sys/Ochoa Pulse Ox Last 24 Hr 7.4 F-98.4 F 50-60 18-22 110-127/54-66 90-98 General appearance: normal weight, no acute distress - Head Head exam: Present: normal inspection, normocephalic - Eye Eye exam: Present: EOMI. Absent: scleral icterus Pupils: Present: FORREST - ENT ENT exam: Present: normal exam Mouth exam: Present: normal external inspection, normal voice - Neck Neck exam: Present: normal inspection, trachea midline - Respiratory Respiratory exam: Present: clear to auscultation bilaterally. Absent: accessory muscle use, chest wall tenderness - Cardiovascular Cardiovascular exam: Present: RRR. Absent: systolic murmur, tachycardia - GI/Abdominal GI/Abdominal exam: Present: normal bowel sounds, tenderness (The patient has diffuse abdominal tenderness and she says that it is worse in the right lower quadrant when pressing but she has no peritoneal signs.), soft. Absent: rebound - Extremities Exam Extremities exam: Present: normal inspection, normal capillary refill - Back Exam Back exam: Present: normal inspection - Neurological Exam Neurological exam: Present: alert, oriented X3 Speech: Present: normal - Skin Skin exam: Present: normal color, warm Results - Labs CBC & BMP: 05/20/17 02:21 05/20/17 02:21 - Diagnostic Findings Procedure: CT Abdomen and Pelvis: image reviewed by me, report reviewed by me ( I reviewed the patient's CT abdomen pelvis from 05/17/2017. On the initial images there is some venous admixture in the mesenteric veins but even on the delayed images I feel like I can see some area in the mesenteric veins that looks like it could be some filling defect. I reviewed this with the radiologist at the time that I looked at the study and she felt that this was not the case but recommended a repeat study after an interval treatment with antibiotics to see how the patient responded with her bowel wall thickening and also to take another look at her mesenteric blood supply.)
--- NOTE | 2017-05-20 14:16 | Gastrointestinal Progress Note ---
Assessment and Plan - Time spent with patient Time spent with patient: Greater than 30 minutes (1) Abdominal pain Status: Acute Current Visit: Yes (2) Other specified counseling Status: Acute Current Visit: Yes Exam (Progress Note) - Constitutional Vitals: Period Temp Pulse Resp BP Sys/Ochoa Pulse Ox Last 24 Hr 7.4 F-98.4 F 50-60 18-22 110-127/54-66 90-98 Results - Labs CBC & BMP: 05/20/17 02:21 05/20/17 02:21 Note Addendum: PLEASE NOTE -- automatic citation of patient information is unavoidable in this electronic note. I have made a reasonable effort to review the information cited , but it is not a part of my evaluation, impression, or recommendation unless specifically discussed in the dictated text that follows. As well, voice recognition software was used in the creation of this clinical note. Reasonable effort was made to identify and correct gross errors. Despite proofreading, errors in manager technology may be present, including nonsense verbiage at times. If you encounter such an error, please contact me at for discussion and correction. -- Bhargavi Chief complaint: abdominal pain Subjective: the patient is a 56-year-old female seen for follow-up of abdominal pain. She reports continued abdominal discomfort, similar to admission. Gen. surgery is also consulting and is planning a mesenteric angiography on Monday to ensure no evidence of a vascular compromise. The patient is tolerating some oral intake, clear liquids. No bowel movements have been reported overnight. Medications: Xanax, ceftriaxone, cyanocobalamin, fentanyl patch, Synthroid, Demerol, Flagyl, Zofran, Protonix, normal saline infusion, ultram, Sonata Review of Symptoms: 12 point review of symptoms was negative except as noted above Physical examination: Vital Signs: Current vital signs reviewed. General Appearance: lying in bed. Comfortable. No apparent distress Head: Normocephalic. Eyes: no scleral icterus. No scleral injection. No conjunctival pallor. Oral Cavity: Odor of breath was normal. No drooling was observed. Lips showed no abnormalities. Lungs: Respiration rhythm and depth was normal. Cardiovascular: Heart rate and rhythm were normal. Abdomen: abdomen was not distended. Abdominal auscultation revealed no abnormalities. Ascites was not discovered. Abdominal palpation revealed mild diffuse tenderness and no hepatosplenomegaly. Musculoskeletal System: musculoskeletal system was grossly normal. Neurological: level of consciousness was normal. Speech was normal. No coordination/cerebellum abnormalities were noted. Skin: Gen. appearance was normal. Color and pigmentation were normal. No skin lesions were appreciated. Laboratory: white blood count 5.7, hemoglobin 9.5, ALT nine, AST 16, alkaline phosphatase 51, total bilirubin 0.5, TSH 73 Radiology: abdominal ultrasound, May 19, 2017 -- minimal free fluid within the abdomen/pelvis; decreased ascites Impressions: 1. Abdominal pain -- no etiologic finding to date. With nonspecific thickening in the small bowel, infectious enterocolitis remains on the list as does inflammatory bowel disease, ischemic mesenteric disease, malignancy, and others. Given the time course and the prolonged history of abdominal problems, both inflammatory bowel disease and malignancy seem unlikely. CT angiography is a reasonable diagnostic step. In the interim, I recommend continued crystalloid resuscitation, continued antibiotic, analgesia as needed, and continued clear liquid diet. 2. Other specified counseling -- Patient seen for greater than 30 minutes. Greater than 50% of this time was spent counseling regarding differential diagnosis, likely diagnosis,, diagnostic and therapeutic options, risks, benefits, and alternatives to procedures and medications, informed consent, and plan of care generally. Patient has expressed understanding and wishes to proceed. Recommendations: -- continued volume resuscitation -- continued antibiotic -- analgesia as needed -- agree with mesenteric angiography -- we will continue to follow with you
--- NOTE | 2017-05-20 14:49 | Hospitalist Progress Note ---
Assessment and Plan (1) Multiple sclerosis Status: Chronic Assessment and plan: Continue to observe she is asymptomatic regarding this diagnosis Current Visit: Yes (2) Anemia Status: Acute Assessment and plan: Stable Current Visit: No Qualifiers: Iron deficiency anemia type: unspecified iron deficiency (3) Abdominal pain Status: Acute Assessment and plan: Continue to be concerned at this point. Patient is on clear liquids and I am informed she is tolerating them. Is no associated fever and associated diarrhea. Noted the abnormalities noted on CT scan. Current Visit: Yes (4) Enteritis Status: Acute Assessment and plan: See CT report Current Visit: Yes (5) Scleroderma Status: Chronic Assessment and plan: This is mentioned in history. Patient acknowledges existence of Raynaud's phenomenon with her. Clubbing bluish hue to the fingers in the winter they get better if they are warmed. Is also pain in the fingers in the winter if they are not covered gloves. Current Visit: Yes Hospitalist: Subjective Interval history: Patient is seen interviewed and examined and chart has been reviewed. 56-year- old lady was admitted to the hospital with acute on chronic abdominal pain he does have a history of multiple sclerosis and possible scleroderma. To me she did acknowledge Raynaud's phenomenon in the winter which is quite common with scleroderma. She still has abdominal pain. Scan of the abdomen is quite abnormal as described in the report in chart. With a systemic sclerosis involving the internal organs not clear this point possibility may be dealing with another condition including chronic idiopathic inflammatory bowel disease especially Crohn's. Infectious processes with the CT abnormality cannot be ruled out. Currently she is tolerating liquids. No fevers white count is normal and electrolytes are normal. Exam - Constitutional Vitals: Period Temp Pulse Resp BP Sys/Ochoa Pulse Ox Last 24 Hr 7.4 F-98.4 F 50-60 18-22 110-127/54-66 90-98 General appearance: normal weight, no acute distress, other (Is complaining of abdominal pain) - Head Head exam: Present: normocephalic, atraumatic - Eye Eye exam: Present: EOMI Pupils: Present: FORREST - ENT ENT exam: Present: normal exam - Neck Neck exam: Present: normal inspection - Respiratory Respiratory exam: Present: clear to auscultation bilaterally - Cardiovascular Cardiovascular exam: Present: regular rate and rhythm - GI/Abdominal GI/Abdominal exam: Present: normal bowel sounds, other (Soft abdomen still bowel sounds no guarding she does have discomfort diffusely on palpation the) - Neurological Exam Neurological exam: Present: alert, oriented X3, CN II-XII intact - Psychiatric Psychiatric exam: Present: normal affect, normal mood - Skin Skin exam: Present: normal color, warm, dry Results - Labs CBC & BMP: 05/20/17 02:21 05/20/17 02:21 Lab Results: I have reviewed the past 24 hour labs (Notice chronic anemia also noted hypoglycemia normal renal function patient had no symptoms of neuroglycopenia during my examination; which was quite subsequent to the time labs were drawn)
[2017-05-20] MEDS: cefTRIAXone 1,000 MG in SODIUM CHLORIDE 0.9% 100 ML IV SCH (18:35)
[2017-05-21] MEDS: metroNIDAZOLE INJ 500 MG in PREMIX 1 EACH IV SCH ×3 (02:44→17:22)
[2017-05-21] MEDS: SODIUM CHLORIDE 0.9% 1,000 ML IV SCH ×2 (09:36→17:21)
[2017-05-21] MEDS: LEVOTHYROXINE 100 MCG TABLET PO SCH (09:37)
[2017-05-21] MEDS: fentaNYL 100 MCG/HR PATCH TRANSDERM SCH (09:38)
[2017-05-21] MEDS: ONDANSETRON 4 MG/2 ML VIAL IV PRN ×2 (09:38→15:41)
[2017-05-21] MEDS: MEPERIDINE 25 MG/1 ML VIAL IV PRN ×2 (09:38→15:41)
[2017-05-21] MEDS: PANTOPRAZOLE 40 MG TABLET PO SCH (09:38)
--- NOTE | 2017-05-21 09:45 | Gastrointestinal Progress Note ---
Assessment and Plan - Time spent with patient Time spent with patient: Less than 30 minutes (1) Abdominal pain Status: Acute Current Visit: Yes (2) Other specified counseling Status: Acute Current Visit: Yes Exam (Progress Note) - Constitutional Vitals: Period Temp Pulse Resp BP Sys/Ochoa Pulse Ox Last 24 Hr 96.8 F-97.9 F 58-65 18-20 104-124/59-72 93-98 Results - Labs CBC & BMP: 05/20/17 02:21 05/20/17 02:21 Note Addendum: PLEASE NOTE -- automatic citation of patient information is unavoidable in this electronic note. I have made a reasonable effort to review the information cited , but it is not a part of my evaluation, impression, or recommendation unless specifically discussed in the dictated text that follows. As well, voice recognition software was used in the creation of this clinical note. Reasonable effort was made to identify and correct gross errors. Despite proofreading, errors in coremaking supervisor may be present, including nonsense verbiage at times. If you encounter such an error, please contact me at for discussion and correction. -- Bhargavi Chief complaint: abdominal pain Subjective: the patient is a 56-year-old female seen for follow-up of abdominal pain. She reports improved abdominal discomfort and has been walking around. She is hungry and has a lunch tray available that she intends to eat. She has not had any bowel movements. She reminds me of a prior diagnosis of scleroderma by his unable to provide any specifics regarding the diagnostic timeframe and has not seen or talked with anyone about scleroderma, specifically, in years. Medications: Xanax, ceftriaxone, cyanocobalamin, fentanyl patch, Synthroid, Demerol, Flagyl, Zofran, Protonix, normal saline infusion, ultram, Sonata Review of Symptoms: 12 point review of symptoms was negative except as noted above Physical examination: Vital Signs: Current vital signs reviewed. General Appearance: lying in bed. Comfortable. No apparent distress Head: Normocephalic. Eyes: no scleral icterus. No scleral injection. No conjunctival pallor. Oral Cavity: Odor of breath was normal. No drooling was observed. Lips showed no abnormalities. Lungs: Respiration rhythm and depth was normal. Cardiovascular: Heart rate and rhythm were normal. Abdomen: abdomen was not distended. Ascites was not discovered. Musculoskeletal System: musculoskeletal system was grossly normal. Neurological: level of consciousness was normal. Speech was normal. No coordination/cerebellum abnormalities were noted. Skin: Gen. appearance was normal. Color and pigmentation were normal. No skin lesions were appreciated. Laboratory: no new laboratories today Radiology: reviewed Impressions: 1. Abdominal pain -- the patient reports some improvement today and has developed a good appetite. This is encouraging. I think CT angiography remains a reasonable diagnostic step. In the interim, I recommend continued crystalloid resuscitation, continued antibiotic, analgesia as needed, and continued clear liquid diet. If she tolerates advancing diet might be reasonable. We should also consider further testing to confirm or deny the presence of rheumatologic disease. 2. Other specified counseling -- Patient seen for greater than 30 minutes. Greater than 50% of this time was spent counseling regarding differential diagnosis, likely diagnosis,, diagnostic and therapeutic options, risks, benefits, and alternatives to procedures and medications, informed consent, and plan of care generally. Patient has expressed understanding and wishes to proceed. Recommendations: -- continued volume resuscitation -- continued antibiotic -- analgesia as needed -- advance diet as tolerated -- consider confirmatory testing regarding scleroderma and/or other rheumatologic disease -- agree with mesenteric angiography -- we will continue to follow with you. Dr. Mendez will resume G.I. care for this patient tomorrow.
--- NOTE | 2017-05-21 11:27 | Hospitalist Progress Note ---
Assessment and Plan (1) Multiple sclerosis Status: Chronic Assessment and plan: Continue to observe she is asymptomatic regarding this diagnosis Current Visit: Yes (2) Anemia Status: Acute Assessment and plan: Stable Current Visit: No Qualifiers: Iron deficiency anemia type: unspecified iron deficiency (3) Abdominal pain Status: Acute Assessment and plan: Symptoms and signs abdominal sites are quiescent this morning. She is planned for CT scan tomorrow. We will advance the diet to full liquid. Current Visit: Yes (4) Enteritis Status: Acute Assessment and plan: See CT report Current Visit: Yes (5) Scleroderma Status: Chronic Assessment and plan: This is mentioned in history. Patient acknowledges existence of Raynaud's phenomenon with her. Clubbing bluish hue to the fingers in the winter they get better if they are warmed. Is also pain in the fingers in the winter if they are not covered gloves. Current Visit: Yes Hospitalist: Subjective Interval history: Patient has been seen interviewed and examined and chart has been reviewed she states that her abdominal pain is a lot better today. Is demanding to be fed. Patient is planned for a repeat CT scan of the abdomen and pelvis tomorrow. As stated in the preceding note of yesterday patient has history of multiple sclerosis chronic anemia came into the hospital with abdominal pain found to have suggestion of enteritis by CT scan. There is also previous history of possible scleroderma in the past as documented in my note from yesterday. She acknowledges a history of Raynaud's phenomenon. This may be true. If that is so I wonder if systemic sclerosis not involved with the findings on her bowels by CT scan. Surgical services and gastroenterology services are on the case he has no problems swallowing symptoms were suggestive of possible small bowel obstruction at admission. No she has normal bowel sounds is able to pass good femoral pain is less. She is on clear liquids we may advance to full liquids today. Exam - Constitutional Vitals: Period Temp Pulse Resp BP Sys/Ochoa Pulse Ox Last 24 Hr 96.8 F-97.9 F 58-65 18-20 104-124/59-72 93-98 General appearance: normal weight, no acute distress - Head Head exam: Present: normocephalic, atraumatic - Eye Eye exam: Present: EOMI Pupils: Present: FORREST - ENT ENT exam: Present: normal exam, normal oropharynx - Respiratory Respiratory exam: Present: clear to auscultation bilaterally - Cardiovascular Cardiovascular exam: Present: regular rate and rhythm - GI/Abdominal GI/Abdominal exam: Present: normal bowel sounds, soft, other (No guarding or rebound tenderness) - Extremities Exam Extremities exam: Present: full ROM - Neurological Exam Neurological exam: Present: alert, oriented X3, CN II-XII intact - Psychiatric Psychiatric exam: Present: normal affect, normal mood - Skin Skin exam: Present: normal color, warm, dry Results - Labs CBC & BMP: 05/20/17 02:21 05/20/17 02:21 Lab Results: I have reviewed the past 24 hour labs
[2017-05-21] MEDS: LORATADINE 10 MG TABLET PO SCH (15:37)
[2017-05-21] MEDS: cefTRIAXone 1,000 MG in SODIUM CHLORIDE 0.9% 100 ML IV SCH (18:24)
[2017-05-21] MEDS: ALPRAZolam 0.5 MG TABLET PO PRN ×2 (18:24→22:24)
[2017-05-21] MEDS ORDERED: LORATADINE 10 MG TABLET PO SCH (21:00)
[2017-05-22] MEDS: ONDANSETRON 4 MG/2 ML VIAL IV PRN ×2 (02:23→20:04)
[2017-05-22] MEDS: MEPERIDINE 25 MG/1 ML VIAL IV PRN ×3 (02:25→20:04)
[2017-05-22] MEDS: metroNIDAZOLE INJ 500 MG in PREMIX 1 EACH IV SCH ×3 (02:29→18:07)
[2017-05-22] MEDS: SODIUM CHLORIDE 0.9% 1,000 ML IV SCH ×3 (02:43→18:10)
[2017-05-22 06:13] LABS: Basophils % 0.5 % (0.0-0.8); Eosinophils # 0.1 10*3/uL (0.0-0.87); Eosinophils % 1.2 % (0.00-10.9); Hemoglobin 10.4 GM/DL (12.0-16.0); Immature Granulocytes % 0.7 %; Immature Granulocytes Absolute 0.04 #; Lymphocytes # 2.1 10*3/uL (1.4-4.0); Mean Corpuscular HGB Conc 34.7 GM/DL (32-36); Mean Corpuscular Hemoglobin 32 PG (27-34); Mean Corpuscular Volume 93.5 FL (87-102); Mean Platelet Volume 9.5 FL (9.6-12.0); Monocytes # 0.4 10*3/uL (0.11-0.8); Monocytes % 7.2 % (1.7-12.7); Neutrophils % 53.4 % (38.7-73.9); Platelet Count 195 T/CUMM (130-400); Red Blood Count 3.21 MC/CUMM (3.8-5.5); Red Cell Distribution Width 12.1 % (9.3-17.3); White Blood Count 5.7 T/CUMM (4-12)
--- NOTE | 2017-05-22 06:24 | Pain Management Progress Note ---
Assessment and Plan (1) Abdominal pain Status: Acute Assessment and plan: i will increase the frequency of demerol as requested by patient and review again in morning 05/19 we can continue current home pain medications and Demerol can be given as needed for breakthrough pain 05/22 continue current pain medications for pain until discharge patient is satisfied with pain management at this time Current Visit: Yes Pain - Subjective Interval history: Patient reports that the pain is well controlled at this time. Patient is wanting to continue the IV Demerol until discharge. Exam - Constitutional Vitals: Period Temp Pulse Resp BP Sys/Ochoa Pulse Ox Last 24 Hr 96.5 F-98.1 F 56-71 18-22 110-144/60-77 94-98 General appearance: no acute distress - Head Head exam: Present: normal inspection - Eye Eye exam: Present: EOMI Pupils: Present: FORREST - ENT ENT exam: Present: normal exam Ear exam: Present: intact Mouth exam: Present: normal external inspection - Neck Neck exam: Present: normal inspection - Respiratory Respiratory exam: Present: clear to auscultation bilaterally - Cardiovascular Cardiovascular exam: Present: RRR - GI/Abdominal GI/Abdominal exam: Present: tenderness - Extremities Exam Extremities exam: Present: normal inspection - Back Exam Back exam: Present: vertebral tenderness - Neurological Exam Neurological exam: Present: alert, oriented X3 - Skin Skin exam: Present: normal color Results - Labs CBC & BMP: 05/22/17 05:28 05/20/17 02:21 Lab Results: I have reviewed the past 24 hour labs
[2017-05-22 06:37] LABS: Calcium 8.2 MG/DL (8.5-10.1); Magnesium 1.9 MG/DL (1.8-2.4); Osmolality,Calculated 278.1 MOS/KG (273-304); Potassium 3.4 MMOL/L (3.5-5.1)
--- NOTE | 2017-05-22 07:51 | CT Report ---
CT angio abd/pel GI Bleed Indication: Abdominal pain. Bowel wall thickening. GI bleed. CT ANGIOGRAM ABDOMEN AND PELVIS DLP: 655 mGy*cm. One or more of the following dose reduction techniques was used: Automated exposure control, adjustment of the mA and/or kV according the patient size, or use of iterative reconstruction techniques. Technique: Axial CT images of the abdomen and pelvis were obtained during the arterial and venous phases of contrast injection. 3-D vascular MIPS reconstructions and multiplanar reformats were evaluated. Omnipaque 350, 100 cc. Comparison: Nonangiographic CT abdomen pelvis 05/17/2017 Arteriogram: Aorta is of normal caliber without aneurysm or stenosis. There is mild atheromatous disease. The celiac, SMA, solitary bilateral renal and inferior mesenteric arteries are widely patent. The common iliac and external iliac arteries are widely patent as well. There is no evidence of active or delayed GI bleed on this exam. Abdomen: Normal heart size. Clear lung bases. Liver, spleen, pancreas, adrenal glands and kidneys remain unremarkable. Small amount of sludge or stones are present in the gallbladder fundus. Gallbladder is otherwise unremarkable. No bowel obstruction. Suggestion of mild segmental bowel wall thickening of the descending and rectosigmoid segments of the colon noted. No free fluid, free air or lymphadenopathy. Metallic density in the region of the cecum is present, likely ingested. This was not seen 5 days ago. Pelvis: Urinary bladder remains grossly unremarkable. Uterus not identified. There are couple scattered diverticula of the sigmoid colon with associated minimal bowel wall thickening but no adjacent inflammation. Appendix not seen. No right lower quadrant inflammation. Impression: 1. No evidence of active GI bleed. No delayed hemorrhage identified. 2. Segmental minimal bowel wall thickening of the descending and rectosigmoid segments of the colon. By CT absent oral contrast, the small bowel appears unremarkable. There are some scattered diverticula of the sigmoid segment. 3. Atheromatous disease. 4. Minimal cholelithiasis. PROCEDURE INTERPRETED AT [facility] DEPARTMENT OF RADIOLOGY Final Report Signed by: Paulino Terrell M.D.
[2017-05-22] MEDS: LORATADINE 10 MG TABLET PO SCH (10:50)
[2017-05-22] MEDS: PANTOPRAZOLE 40 MG TABLET PO SCH (10:50)
[2017-05-22] MEDS: LEVOTHYROXINE 100 MCG TABLET PO SCH (10:50)
--- NOTE | 2017-05-22 11:10 | Gastrointestinal Progress Note ---
Assessment and Plan (1) Abdominal pain Status: Acute Assessment and plan: 05/22-abdominal pain improved. Tolerating small amounts of diet. CT angiogram noted as below. H&H stable at 08/07. Plan an addendum to followed by Dr. Mendez. 05/19-abdominal pain continues. No nausea or vomiting. Afebrile. No leukocytosis. Diagnostic paracentesis today. Await results of this. Plan an addendum to follow Dr. Mendez 05/18-several day history of lower abdominal and umbilical pain with associated nausea and vomiting as well as fever and chills. History of small bowel obstruction in the past. Leukocytosis noted on admission. CT findings noted as below. Currently no IV antibiotics. Obtain records from endoscopic center for prior endoscopy. Plan an addendum followed by Dr. Mendez. Current Visit: Yes Gastroenterology - PN: Subj Interval history: CC: Abdominal pain Patient is seen awake and alert sitting up in bed. States that she is feeling a little better at this time and is tolerating very small amount of regular diet. Denies any nausea or vomiting. She is still complaining of some upper back pain that she states is around her rib cage area. States that she has had a fairly small normal bowel movement this morning. She is afebrile without leukocytosis. She has CT of angiogram of the abdomen done this morning with no evidence of GI bleed or delayed hemorrhage, segmental minimal bowel wall thickening of descending and rectosigmoid sigmoid segments with unremarkable small bowel and scattered sigmoid diverticuli. Minimal cholelithiasis noted. Gallbladder noted to be unremarkable as well. Abdomen is soft, mild tenderness palpation. ROS: Denies shortness of breath or chest pain Exam (Progress Note) - Constitutional Vitals: Period Temp Pulse Resp BP Sys/Ochoa Pulse Ox Last 24 Hr 96.5 F-98.1 F 56-71 18-22 110-144/60-77 94-98 General appearance: normal weight, no acute distress - Head Head exam: Present: normal inspection, normocephalic - Eye Eye exam: Present: other (Lids and conjunctivae are unremarkable). Absent: scleral icterus - ENT ENT exam: Present: normal exam, normal oropharynx - Neck Neck exam: Present: normal inspection - Respiratory Respiratory exam: Present: clear to auscultation bilaterally. Absent: rales, rhonchi, wheezes - Cardiovascular Cardiovascular exam: Present: regular rate and rhythm. Absent: diastolic murmur , JVD, systolic murmur - GI/Abdominal GI/Abdominal exam: Present: normal bowel sounds, tenderness (Mild), soft. Absent: ascites, distended, mass, organomegaly - Extremities Exam Extremities exam: Present: normal inspection, full ROM - Back Exam Back exam: Present: normal inspection - Neurological Exam Neurological exam: Present: alert, oriented X3 - Psychiatric Psychiatric exam: Present: normal affect, normal mood - Skin Skin exam: Present: normal color, warm, dry Results - Labs CBC & BMP: 05/22/17 05:28 05/22/17 05:28 Lab Results: I have reviewed the past 24 hour labs - Diagnostic Findings Procedure: CT Abdomen and Pelvis: report reviewed by me
--- NOTE | 2017-05-22 11:23 | General Surgery Progress Note ---
Assessment and Plan (1) Abdominal pain Status: Acute Assessment and plan: The patient is doing much better. Her abdomen is fairly benign and she is hungry today. We will allow her to eat regular food. I do not see anything on her CT scan that suggests that she would benefit from any sort of diagnostic operative procedure. We are in the process of obtaining remaining records from [facility] and also from here at [facility] and at the [facility]. I would continue her antibiotic treatment course when she leaves the hospital for a couple weeks but I do not think there is anything further to be done surgically at this time. Current Visit: Yes Subjective Patient reports: Present: no new complaints, feels better, still having pain, pain is less, tolerating liquids well, flatus, bowel movement, afebrile. Absent : nausea, vomiting Narrative: The patient is starting to feel better over the weekend. Her bowel function is normalizing and she has no nausea or vomiting. She feels hungry this morning and tolerated liquids over the weekend to Exam - Constitutional Vitals: Period Temp Pulse Resp BP Sys/Ochoa Pulse Ox Last 24 Hr 96.5 F-98.1 F 56-71 18-22 110-144/60-77 94-98 General appearance: normal weight, no acute distress - Head Head exam: Present: normal inspection, normocephalic - Eye Eye exam: Present: EOMI. Absent: scleral icterus Pupils: Present: FORREST - ENT ENT exam: Present: normal exam Mouth exam: Present: normal external inspection, normal voice - Neck Neck exam: Present: normal inspection, trachea midline - Respiratory Respiratory exam: Present: clear to auscultation bilaterally. Absent: accessory muscle use, chest wall tenderness - Cardiovascular Cardiovascular exam: Present: RRR. Absent: systolic murmur, tachycardia - GI/Abdominal GI/Abdominal exam: Present: normal bowel sounds, tenderness (Minimal diffuse tenderness of the abdomen), soft. Absent: rebound - Extremities Exam Extremities exam: Present: normal inspection, normal capillary refill - Back Exam Back exam: Present: normal inspection - Neurological Exam Neurological exam: Present: alert, oriented X3 Speech: Present: normal - Skin Skin exam: Present: normal color, warm Results - Labs CBC & BMP: 05/22/17 05:28 05/22/17 05:28 - Diagnostic Findings Procedure: CT Abdomen and Pelvis: image reviewed by me, report reviewed by me ( Small bowel thickening and fluid in the abdomen and pelvis has resolved.)
--- NOTE | 2017-05-22 13:02 | Hospitalist Progress Note ---
Assessment and Plan (1) Multiple sclerosis Status: Chronic Assessment and plan: Continue to observe she is asymptomatic regarding this diagnosis Current Visit: Yes (2) Anemia Status: Acute Assessment and plan: Stable Current Visit: No Qualifiers: Iron deficiency anemia type: unspecified iron deficiency (3) Abdominal pain Status: Acute Assessment and plan: Separately much resolved. Patient will start eating regular food today Current Visit: Yes (4) Enteritis Status: Acute Assessment and plan: Repeat CT does not describe the findings of the face CT. This was done yesterday for CT was done the day of admission Current Visit: Yes (5) Scleroderma Status: Chronic Assessment and plan: This is mentioned in history. Patient acknowledges existence of Raynaud's phenomenon with her. Clubbing bluish hue to the fingers in the winter they get better if they are warmed. Is also pain in the fingers in the winter if they are not covered gloves. Current Visit: Yes Hospitalist: Subjective Interval history: Patient is seen interviewed and examined chart has been states that she is feeling a lot better requesting to be fed. In general seen the patient and elected for the liquid diet now. Had a repeat CAT scan that shows no enteropathy with the surgical intervention at this time. Vascular assessment including C-reactive super superior mesenteric and inferior mesenteric artery are normal. There is some atherosclerosis noted on the arteries but nothing obstructive. She did not have an oral contrast CT all comments on the integrity of the gut are dependent on IV contrast. Exam - Constitutional Vitals: Period Temp Pulse Resp BP Sys/Ochoa Pulse Ox Last 24 Hr 96.5 F-98.1 F 56-77 18-22 110-144/60-77 94-98 General appearance: normal weight, no acute distress - Head Head exam: Present: normocephalic, atraumatic - Eye Eye exam: Present: EOMI, other (Anicteric sclera) Pupils: Present: FORREST - ENT ENT exam: Present: normal exam - Neck Neck exam: Present: normal inspection - Respiratory Respiratory exam: Present: clear to auscultation bilaterally - Cardiovascular Cardiovascular exam: Present: regular rate and rhythm - GI/Abdominal GI/Abdominal exam: Present: normal bowel sounds, soft, other (No guarding) - Extremities Exam Extremities exam: Present: full ROM, other (Ambulates ad peggy.) - Neurological Exam Neurological exam: Present: alert, oriented X3, CN II-XII intact - Psychiatric Psychiatric exam: Present: normal affect, normal mood - Skin Skin exam: Present: normal color, warm Results - Labs CBC & BMP: 05/22/17 05:28 05/22/17 05:28 Lab Results: I have reviewed the past 24 hour labs (Noted hypokalemia supplemented per protocol)
[2017-05-22] MEDS: cefTRIAXone 1,000 MG in SODIUM CHLORIDE 0.9% 100 ML IV SCH (20:06)
[2017-05-22] MEDS: ALPRAZolam 0.5 MG TABLET PO PRN (22:34)
[2017-05-23] MEDS: metroNIDAZOLE INJ 500 MG in PREMIX 1 EACH IV SCH ×2 (01:13→10:06)
[2017-05-23] MEDS: SODIUM CHLORIDE 0.9% 1,000 ML IV SCH ×2 (01:13→10:06)
[2017-05-23] MEDS: MEPERIDINE 25 MG/1 ML VIAL IV PRN (01:15)
[2017-05-23 07:46] VITALS: BP 140/66
--- NOTE | 2017-05-23 08:00 | General Surgery Progress Note ---
Assessment and Plan (1) Abdominal pain Status: Acute Assessment and plan: The patient continues to improve. Her records are not available for review yet from [place] or [facility]. I would be okay with an outpatient antibiotic regimen and follow-up as an outpatient with her primary team. If I get a hold of her records and see anything that would help establish the diagnosis I will call her and let her know. I do not think there is any indication for operative intervention at this time. Please call back for any further questions Current Visit: Yes Subjective Patient reports: Present: no new complaints, feels better, tolerating a regular diet, afebrile. Absent: nausea, vomiting Exam - Constitutional Vitals: Period Temp Pulse Resp BP Sys/Ochoa Pulse Ox Last 24 Hr 96.9 F-98.1 F 51-77 18-21 104-140/59-79 96-97 General appearance: normal weight, no acute distress - Head Head exam: Present: normal inspection, normocephalic - Eye Eye exam: Present: EOMI. Absent: scleral icterus Pupils: Present: FORREST - ENT ENT exam: Present: normal exam Mouth exam: Present: normal external inspection, normal voice - Neck Neck exam: Present: normal inspection, trachea midline - Respiratory Respiratory exam: Present: clear to auscultation bilaterally. Absent: accessory muscle use, chest wall tenderness - Cardiovascular Cardiovascular exam: Present: RRR. Absent: systolic murmur, tachycardia - GI/Abdominal GI/Abdominal exam: Present: normal bowel sounds, soft. Absent: tenderness, rebound - Extremities Exam Extremities exam: Present: normal inspection, normal capillary refill - Back Exam Back exam: Present: normal inspection - Neurological Exam Neurological exam: Present: alert, oriented X3 Speech: Present: normal - Skin Skin exam: Present: normal color, warm Results - Labs CBC & BMP: 05/22/17 05:28 05/22/17 05:28 - Diagnostic Findings Procedure: CT Abdomen and Pelvis: image reviewed by me, report reviewed by me
--- NOTE | 2017-05-23 09:40 | Gastrointestinal Progress Note ---
Assessment and Plan (1) Abdominal pain Status: Acute Assessment and plan: 05/23-no complaints of abdominal pain. Tolerating diet. For possible discharge home today. Plan an addendum to followed by Dr. Mendez. 05/22-abdominal pain improved. Tolerating small amounts of diet. CT angiogram noted as below. H&H stable at 08/07. Plan an addendum to followed by Dr. Mendez. 05/19-abdominal pain continues. No nausea or vomiting. Afebrile. No leukocytosis. Diagnostic paracentesis today. Await results of this. Plan an addendum to follow Dr. Mendez 05/18-several day history of lower abdominal and umbilical pain with associated nausea and vomiting as well as fever and chills. History of small bowel obstruction in the past. Leukocytosis noted on admission. CT findings noted as below. Currently no IV antibiotics. Obtain records from endoscopic center for prior endoscopy. Plan an addendum followed by Dr. Mendez. Current Visit: Yes Gastroenterology - PN: Subj Interval history: CC: Abdominal pain Patient is seen awake and alert ambulating in room. States she had a restful night and denies any abdominal pain, nausea or vomiting. Abdomen is soft, nontender. She is tolerating her diet and appetite is improving. Dr. Apple has seen patient today and at this time has signed off however is agreeable to outpatient antibiotic treatment. He is still awaiting records to review from [place]. Abdomen is soft, nontender. Patient is afebrile without leukocytosis. She is for possible discharge home today. ROS: Denies shortness of breath or chest pain Exam (Progress Note) - Constitutional Vitals: Period Temp Pulse Resp BP Sys/Ochoa Pulse Ox Last 24 Hr 96.9 F-98.1 F 51-77 18-21 104-140/59-79 96-97 General appearance: normal weight, no acute distress - Head Head exam: Present: normal inspection, normocephalic - Eye Eye exam: Present: other (Lids and conjunctive are unremarkable). Absent: scleral icterus - ENT ENT exam: Present: normal exam, normal oropharynx - Neck Neck exam: Present: normal inspection - Respiratory Respiratory exam: Present: clear to auscultation bilaterally. Absent: rales, rhonchi, wheezes - Cardiovascular Cardiovascular exam: Present: regular rate and rhythm. Absent: diastolic murmur , JVD, systolic murmur - GI/Abdominal GI/Abdominal exam: Present: normal bowel sounds, soft. Absent: ascites, distended, mass, organomegaly, tenderness - Extremities Exam Extremities exam: Present: normal inspection, full ROM - Back Exam Back exam: Present: normal inspection - Neurological Exam Neurological exam: Present: alert, oriented X3 - Psychiatric Psychiatric exam: Present: normal affect, normal mood - Skin Skin exam: Present: normal color, warm, dry Results - Labs CBC & BMP: 05/22/17 05:28 05/22/17 05:28 Lab Results: I have reviewed the past 24 hour labs
[2017-05-23] MEDS: LEVOTHYROXINE 100 MCG TABLET PO SCH (09:57)
[2017-05-23] MEDS: PANTOPRAZOLE 40 MG TABLET PO SCH (09:57)
[2017-05-23] MEDS: LORATADINE 10 MG TABLET PO SCH (09:57)
--- NOTE | 2017-05-23 10:16 | Discharge Summary ---
Hospital Course - Hospital Course Hospital Course: Ms. Stewart is a 56 year old white female with history of gerd, multiple sclerosis, fibromyalgia, multiple who presented to the ED on 05/17 with abdominal pain. Pt reported that she had a kidney stone and underwent lithotripsy approximately 3 weeks ago. Pt. reported continued pain and presented for evaluation after severe pain with some nausea/vomiting. CT revealed 'segmental wall thickening of the jejunum with increased folds and stacked coin appearance, separate areas of subsegmental bowel wall thickening of the ileum, diverticulosis and ascites'. She was admitted for evaulation and continuation of care. Pt. was started on IV antibiotics and given fluid hydration. GI was consulted to evaluate the patient. General surgery also evaluated the patient. There was noted to not be a need for operative intervention at this time. Pt's abdominal pain gradually improved. Pt. is stable to be released on outpatient antibotic therapy. Dr. Merrittwe to follow up with any additional instructions. Diagnosis - Discharge Diagnosis (1) Multiple sclerosis Status: Chronic (2) Anemia Status: Acute (3) Abdominal pain Status: Acute (4) Enteritis Status: Acute (5) Scleroderma Status: Chronic Discharge Plan - Discharge Data Disposition: Disch To Home/Self Care Condition at Discharge: Stable Discharge Diet: heart healthy Hygiene: no restrictions Driving: no restrictions Contact your physician if you experience:: fever over 101, Nausea/Vomiting, Shortness of breath, pain uncontrolled by pain medications - Discharge Medications New Ciprofloxacin Tab [Cipro Tab] 500 mg PO Q12HR #28 tablet metroNIDAZOLE TAB [Flagyl Cap/Tab] 500 mg PO BID #28 tablet Continue fentaNYL 100 MCG/HR PATCH [Duragesic 100 Patch] 1 patch TRANSDERM Q3D Tramadol HCl [Tramadol Tab] 50 mg PO QID PRN PRN Reason: Pain Oxycodone HCl/Acetaminophen [Oxycodone-Acetaminophen 10-325] 10 mg PO Q4H PRN PRN Reason: Pain ALPRAZolam [Alprazolam] 2 mg PO TID PRN PRN Reason: Restlessness Zolpidem [Ambien] 5 mg PO BEDTIME PRN PRN Reason: Sleep Ondansetron [Ondansetron Odt] 4 mg PO BID PRN PRN Reason: Nausea Levothyroxine Tab [Synthroid Tab] 125 mcg PO DAILY@0700 Dexlansoprazole [Dexilant] 60 mg PO DAILY Cyanocobalamin Inj [Vitamin B12 Inj] 1,000 mcg SUBCUT Q30D - Follow Up or Referral - Forms/Instructions Exam - Constitutional Vitals: Period Temp Pulse Resp BP Sys/Ochoa Pulse Ox Last 24 Hr 97 F-98.1 F 51-72 18-21 104-140/59-79 96-97 General appearance: normal weight - Head Head exam: Present: normocephalic, atraumatic - Eye Eye exam: Present: EOMI Pupils: Present: FORREST - ENT ENT exam: Present: normal exam - Respiratory Respiratory exam: Present: clear to auscultation bilaterally - Cardiovascular Cardiovascular exam: Present: regular rate and rhythm - GI/Abdominal GI/Abdominal exam: Present: normal bowel sounds, soft - Extremities Exam Extremities exam: Present: full ROM - Back Exam Back exam: Present: normal inspection - Neurological Exam Neurological exam: Present: alert, oriented X3, CN II-XII intact - Psychiatric Psychiatric exam: Present: normal affect, normal mood - Skin Skin exam: Present: normal color, warm, dry DS: Provider Date of admission: 05/19/17 09:33 Primary care physician: Chinedu Flowers MD Attending physician on admission: Leatha Baez MD Consults: 05/18/17 08:33 Consult to Physician [CONS] Routine Comment: Consulting Provider: Jonas Mendez Consult to Specialist Group: Gastroenterology Person Notified: GREER Date Notified: 05/18/17 Time Notified: 08:49 05/18/17 14:00 Consult to Physician [CONS] Routine Comment: Consulting Provider: Leena Maldonado Person Notified: taylor Date Notified: 05/18/17 Time Notified: 14:05 Consult Notification Comment: will see pt in am 05/19/17 18:03 Consult to Physician [CONS] Routine Comment: abd pain, ascites,abn CT SI Consulting Provider: Justino Apple When should Consulting Provider be notified: In am Person Notified: Dr. Alvarado Date Notified: 05/20/17 Time Notified: 11:33 Discharging clinician: Wilfrido Armenta MD
[2017-05-23] MEDS ORDERED: metroNIDAZOLE 500 MG TABLET PO SCH (11:00)
[2017-05-23] MEDS ORDERED: CIPROFLOXACIN 500 MG TABLET PO SCH (11:00)
== END 2017-05-23 11:45 | disposition home or self-care (01) | DRG 392 ==
LOC: N.EDINP 15:30 → N.ED 15:30 → SUATTDRO 18:51 → N.2E 19:14 → SUATTDRO 05-19 09:33 → N.2E 05-23 14:30
PROVIDERS: ADMIT Family Medicine; ATTEND Internal Medicine Infectious Disease

== ENCOUNTER 2021-03-30 10:00 | Inpatient (IN) ==
[2021-03-30] MEDS ORDERED: ONDANSETRON 4 MG/2 ML VIAL IV ONE (11:34)
[2021-03-30] MEDS ORDERED: MORPHINE 4 MG/1 ML VIAL IV STA (11:35)
[2021-03-30 11:51] LABS: Basophils % 0.3 % (0.0-0.8); Eosinophils # 0.1 10*3/uL (0.0-0.87); Eosinophils % 0.9 % (0.00-10.9); Hematocrit 33.2 VOL% (35.7-47.0); Hemoglobin 11.1 GM/DL (12.0-16.0); Immature Granulocytes % 0.3 %; Immature Granulocytes Absolute 0.03 #; Lymphocytes # 1.5 10*3/uL (1.4-4.0); Lymphocytes % 14.5 % (21.3-54.2); Mean Corpuscular HGB Conc 33.4 GM/DL (32-36); Mean Corpuscular Volume 99.7 FL (87-102); Mean Platelet Volume 8.9 FL (9.6-12.0); Monocytes % 5.8 % (1.7-12.7); Neutrophils % 78.2 % (38.7-73.9); Platelet Count 255 T/CUMM (130-400); Red Blood Count 3.33 MC/CUMM (3.8-5.5); Red Cell Distribution Width 12.2 % (9.3-17.3); White Blood Count 10.3 T/CUMM (4-12)
[2021-03-30 12:09] LABS: Albumin 3.8 G/DL (3.4-5.0); Bilirubin,Total 0.4 MG/DL (0.2-1.0); Calcium 8.9 MG/DL (8.5-10.1); Osmolality,Calculated 272.8 MOS/KG (273-304); Potassium 3.9 MMOL/L (3.5-5.1); Total Protein 7.8 G/DL (6.4-8.2)
[2021-03-30] MEDS ORDERED: METOCLOPRAMIDE 10 MG/2 ML VIAL IV STA (14:00)
[2021-03-30] MEDS ORDERED: ACETAMINOPHEN 325 MG TABLET PO PRN (14:53)
[2021-03-30] MEDS ORDERED: ALBUTEROL/IPRATROPIUM 3 ML NEB RESP TX PRN (14:53)
[2021-03-30] MEDS: PIPERACILLIN/TAZOBACTAM 3,375 MG in SODIUM CHLORIDE 0.9% 100 ML IV SCH ×2 (16:56→23:13)
[2021-03-30] MEDS: LACTATED RINGERS 1,000 ML IV SCH (17:37)
[2021-03-30] MEDS: HYDROmorphone 2 MG/1 ML VIAL IV PRN ×2 (18:01→20:55)
[2021-03-30 18:17] LABS: Bacteria,Urine Occasional /HPF (Few); Bilirubin,Urine Negative (Negative); Blood, Urine Moderate mg/dL (Negative); Glucose,Urine (UA) Negative (Negative); Ketones,Urine Negative (Negative); Mucus,Urine Occasional /LPF (Occasional); Nitrite,Urine Negative (Negative); Protein,Urine Negative; RBC,Urine 3 /HPF (0-4); Squamous Epithelial Cell,Urine Occasional /HPF (0-10); Urine Appearance CLEAR (Clear); Urine Color Yellow (Yellow); Urine Specific Gravity 1.016 (1.001-1.035); Urine Urobilinogen < 2.0 EU/DL (0.2-1.0)
[2021-03-30] MEDS: ONDANSETRON 4 MG/2 ML VIAL IV PRN (20:55)
[2021-03-31] MEDS: HYDROmorphone 2 MG/1 ML VIAL IV PRN ×6 (00:52→20:14)
[2021-03-31] MEDS: LACTATED RINGERS 1,000 ML IV SCH ×3 (05:10→17:39)
[2021-03-31 05:50] LABS: Basophils % 0.4 % (0.0-0.8); Eosinophils # 0.2 10*3/uL (0.0-0.87); Eosinophils % 3.1 % (0.00-10.9); Hemoglobin 9.6 GM/DL (12.0-16.0); Immature Granulocytes % 0.8 %; Immature Granulocytes Absolute 0.04 #; Lymphocytes % 37.7 % (21.3-54.2); Mean Platelet Volume 9.2 FL (9.6-12.0); Monocytes % 6.9 % (1.7-12.7); Neutrophils % 51.1 % (38.7-73.9); Platelet Count 206 T/CUMM (130-400); Red Blood Count 2.97 MC/CUMM (3.8-5.5); Red Cell Distribution Width 12.3 % (9.3-17.3); White Blood Count 5.2 T/CUMM (4-12)
[2021-03-31 06:17] LABS: Calcium 8.4 MG/DL (8.5-10.1); Osmolality,Calculated 277.3 MOS/KG (273-304); Potassium 3.8 MMOL/L (3.5-5.1)
[2021-03-31] MEDS: PIPERACILLIN/TAZOBACTAM 3,375 MG in SODIUM CHLORIDE 0.9% 100 ML IV SCH ×3 (06:52→22:58)
[2021-03-31] MEDS: PANTOPRAZOLE 40 MG VIAL IV SCH (09:06)
[2021-03-31] MEDS: ONDANSETRON 4 MG/2 ML VIAL IV PRN (09:32)
[2021-03-31] MEDS ORDERED: NITROGLYCERIN SL 0.4 MG TABLET SL PRN (14:43)
[2021-03-31] MEDS: DICYCLOMINE 20 MG TABLET PO SCH ×2 (15:59→20:14)
[2021-03-31] MEDS: ZALEPLON 5 MG CAPSULE PO PRN (20:14)
[2021-03-31] MEDS: METHOCARBAMOL 750 MG TABLET PO SCH (20:14)
[2021-04-01] MEDS: HYDROmorphone 2 MG/1 ML VIAL IV PRN ×6 (01:19→21:36)
[2021-04-01] MEDS: LEVOTHYROXINE 100 MCG TABLET PO SCH (06:19)
[2021-04-01] MEDS: LACTATED RINGERS 1,000 ML IV SCH ×4 (06:19→19:12)
[2021-04-01] MEDS: PIPERACILLIN/TAZOBACTAM 3,375 MG in SODIUM CHLORIDE 0.9% 100 ML IV SCH ×3 (06:19→23:21)
[2021-04-01] MEDS: ONDANSETRON 4 MG/2 ML VIAL IV PRN ×3 (07:22→16:51)
[2021-04-01] MEDS: DICYCLOMINE 20 MG TABLET PO SCH ×3 (08:41→20:27)
[2021-04-01] MEDS: METHOCARBAMOL 750 MG TABLET PO SCH ×2 (08:41→20:27)
[2021-04-01] MEDS: PANTOPRAZOLE 40 MG VIAL IV SCH (08:41)
[2021-04-01] MEDS ORDERED: fentaNYL 75 MCG/HR PATCH TRANSDERM SCH (17:00)
[2021-04-01] MEDS: ZALEPLON 5 MG CAPSULE PO PRN (20:27)
[2021-04-02 00:11] LABS: CDT Result Negative (Negative); CDT Specimen Source STOOL
[2021-04-02] MEDS: LEVOTHYROXINE 100 MCG TABLET PO SCH (06:07)
[2021-04-02] MEDS: PIPERACILLIN/TAZOBACTAM 3,375 MG in SODIUM CHLORIDE 0.9% 100 ML IV SCH ×2 (06:07→15:00)
[2021-04-02] MEDS: LACTATED RINGERS 1,000 ML IV SCH ×3 (06:16→15:00)
[2021-04-02] MEDS: METHOCARBAMOL 750 MG TABLET PO SCH (09:00)
[2021-04-02] MEDS: HYDROmorphone 2 MG/1 ML VIAL IV PRN (10:04)
[2021-04-02] MEDS: DICYCLOMINE 20 MG TABLET PO SCH ×2 (10:07→15:30)
[2021-04-02] MEDS: PANTOPRAZOLE 40 MG VIAL IV SCH (10:07)
[2021-04-02 19:29] VITALS: BP 126/50
== END 2021-04-02 17:50 | disposition home or self-care (01) | DRG 392 ==
LOC: N.ED 10:00 → N.EDINP 14:53 → N.3E 16:30
PROVIDERS: ADMIT Student in an Organized Health Care Education/Training Program; ATTEND Student in an Organized Health Care Education/Training Program